=== PATIENT | female | born 1955 | race Caucasian/White ===

== ENCOUNTER 2018-06-10 10:17 | Inpatient (IN) | payer OTHER ==
--- OUTSIDE RECORDS SUMMARY | 2018-06-10 10:18 | XMS REPORT ---
:1955 Author Organization eClinicalWorks Care Team Providers Name Role Phone Cecily Kwon Provider Role Unavailable Allergies No Known Allergies Problems Problem Type Condition Code Onset Dates Condition Status Problem Atrial fibrillation, unspecified I48.91 Active type Problem Heart disease I51.9 Active Problem Chronic obstructive pulmonary J44.9 Active disease, unspecified COPD type Problem Asthma, unspecified asthma J45.909 Active severity, unspecified whether complicated, unspecified whether persistent Problem Abnormal heart rhythm I49.9 Active Problem Anxiety F41.9 Active Problem Asthma J45.909 Active Problem COPD (chronic obstructive pulmonary J44.9 Active disease) Problem History of TIA (transient ischemic Z86.73 Active attack) Problem Depression with anxiety F41.8 Active Problem Stroke I63.9 Active Problem Depression F32.9 Active Medications No Known Medications Results No Known Results Summary Purpose eClinicalWorks Submission
--- OUTSIDE RECORDS SUMMARY | 2018-06-10 10:18 | XMS REPORT ---
:1955 Author Organization eClinicalWorks Care Team Providers Name Role Phone Cecily Kwon Provider Role Unavailable Allergies, Adverse Reactions, Alerts Substance Reaction Event Type Bactrim Info Not Available Drug Allergy contrast dye hives Non Drug Allergy Problems Problem Type Condition Code Onset Dates Condition Status Problem Atrial fibrillation, unspecified I48.91 Active type Problem Heart disease I51.9 Active Problem Chronic obstructive pulmonary J44.9 Active disease, unspecified COPD type Problem Anxiety F41.9 Active Problem Asthma J45.909 Active Problem COPD (chronic obstructive pulmonary J44.9 Active disease) Problem History of TIA (transient ischemic Z86.73 Active attack) Problem Depression with anxiety F41.8 Active Problem Stroke I63.9 Active Problem Depression F32.9 Active Assessment Depression with anxiety F41.8 Active Assessment History of TIA (transient ischemic Z86.73 Active attack) Assessment Atrial fibrillation, unspecified I48.91 Active type Assessment Chronic obstructive pulmonary J44.9 Active disease, unspecified COPD type Problem Asthma, unspecified asthma J45.909 Active severity, unspecified whether complicated, unspecified whether persistent Assessment Asthma, unspecified asthma J45.909 Active severity, unspecified whether complicated, unspecified whether persistent Problem Abnormal heart rhythm I49.9 Active Medications Medication Code Code Instructions Start End Status Dosage System Date Date Symbicort [facility] 25461149967 160-4.5 MCG/ACT September 17, Active 2 puffs Inhalation 2019 Twice daily Albuterol [facility] 43313968716 (2.5 MG/3ML) Active 3 ml unit Sulfate 0.083% dose as Inhalation needed Every 4-[address] [facility] 71752023679 50 MG Orally Active 1 tablet Tartrate Twice daily with food Eliquis ND 91995420823 5 MG Orally Active 1 tablet Twice daily Sertraline HCl ND 61856044273 50 MG Orally Active 1 tablet Once daily Atorvastatin ND 37320417990 40 MG Orally Active 1 tablet Calcium Once daily in evening Ventolin HFA ND 98102490631 90 MCG/ACT Active 2 puffs as Inhalation needed every 4-[address] [facility] 15822136789 100 mg Orally Active 1 tablet Acetate Twice daily Results No Known Results Summary Purpose eClinicalWorks Submission
[2018-06-10] MEDS ORDERED: IPRATROPIUM BROM 0.5MG/2.5ML ONE (10:43)
[2018-06-10] MEDS ORDERED: ALBUTEROL 2.5 MG/3 ML NEB SOL ONE (10:43)
[2018-06-10] MEDS ORDERED: METHYLPREDNISOLONE 125 MG INJ ONE (10:53)
[2018-06-10] MEDS ORDERED: Magnesium Sulfate 2gm IVPB 2 G/50 ML BAG IV ONE (10:53)
[2018-06-10 11:11] LABS: Absolute Lymphocytes (CBC) 0.7 K/uL (0.7-4.9); Absolute Monocytes 0.6 K/uL (0.1-1.3); Absolute Neutrophil 5.9 K/uL (1.8-8.0); Basophils % 0.9 % (0-1.3); Eosinophils % 0.5 % (0-4.4); Hematocrit 46.5 % (36.0-45.0); Lymphocytes % 10.1 % (15.3-44.8); Monocytes % 7.6 % (3.3-12.3); RBC Red Blood Cell Count 5.43 M/uL (3.86-4.86)
--- NOTE | 2018-06-10 11:11 | RAD REPORT ---
EXAM DESCRIPTION: RAD - Chest Single View - 06/10/2018 11:05 am CLINICAL HISTORY: Cough, shortness of breath, history of COPD COMPARISON: None. TECHNIQUE: AP portable chest image was obtained 1103 hours . FINDINGS: No focal lung parenchymal process. Portable technique and overlying breast soft tissue acc entuates lung base markings. Minimal interstitial edema or infiltrate is not excluded. Heart and vasc ulature are normal. No measurable pleural effusion and no pneumothorax. No acute bony abnormality see n. No acute aortic findings suspected. IMPRESSION: No focal lung parenchymal process and no significant failure or volume overload findings . Baseline study shows prominent interstitial markings and early interstitial edema or infiltrate canno t be excluded.
[2018-06-10] MEDS ORDERED: LEVALBUTEROL 1.25 MG/3 ML NEB ONE (11:16)
[2018-06-10 11:37] LABS: Troponin (Emerg Dept Use Only) < 0.02 ng/mL (0.0-0.045)
[2018-06-10 11:38] LABS: BUN Blood Urea Nitrogen 22 mg/dL (7-18); Bicarbonate 26 mmol/L (21-32); Glucose Level 160 mg/dL (74-106); Potassium 3.9 mmol/L (3.5-5.1); Sodium Level 139 mmol/L (136-145)
--- NOTE | 2018-06-10 11:48 | ER ---
Nurse's Notes [facility] Name: Nayely Patiño Age: 62 yrs Sex: Female : 1955 Arrival Date: 06/10/2018 Time: 10:17 Bed 7 Private MD: Cecily Kwon Diagnosis: Chronic obstructive pulmonary disease with (acute) exacerbation Presentation: 06/10 10:28 Presenting complaint: Patient states: dx with strep on Monday and sent home with sv Amoxicillin, has been having increasing SOB since and has been doubling up on her inhaler at home. Pt slept sitting up last night. Transition of care: patient was not received from another setting of care. Onset of symptoms was June 08, 2018. Risk Assessment: Do you want to hurt yourself or someone else? Patient reports no desire to harm self or others. Initial Sepsis Screen: Does the patient meet any 2 criteria? RR > 20 per min. No. Patient's initial sepsis screen is negative. Does the patient have a suspected source of infection? Yes: Productive cough/pneumonia. Care prior to arrival: None. 10:28 Method Of Arrival: Wheelchair sv 10:28 Acuity: ALEXI 2 sv Triage Assessment: 10:28 General: Appears distressed, uncomfortable, well developed, Behavior is cooperative, sv appropriate for age. Pain: Denies pain. Neuro: Level of Consciousness is awake, alert, obeys commands, Oriented to person, place, time, situation, Moves all extremities. Full function Gait is steady, Speech is normal. Cardiovascular: Patient's skin is warm and dry. Pulses are 3+ in right radial artery and left radial artery. Respiratory: Reports shortness of breath at rest on exertion cough that is productive, persistent yellow labored breathing Airway is patent Respiratory effort is labored, pursed lip, Respiratory pattern is symmetrical, tachypnea Breath sounds with wheezes bilaterally. Onset: The symptoms/episode began/occurred 2 days ago, the patient has severe shortness of breath. Derm: Skin is pink, warm \T\ dry. Historical: - Allergies: 10:39 Bactrim; sv 10:39 Iodine; sv - PMHx: 10:39 COPD; Atrial Fib; sv - PSHx: 10:39 back; Knee surgery; thumb; sv - Immunization history:: Adult Immunizations up to date. - Social history:: Smoking status: Patient uses tobacco products, smokes one-half pack cigarettes per day. - Ebola Screening: : No symptoms or risks identified at this time. Screenin:18 Abuse screen: Denies threats or abuse. Denies injuries from another. Nutritional sv screening: No deficits noted. Tuberculosis screening: No symptoms or risk factors identified. Fall Risk None identified. Assessment: 11:30 Reassessment: Patient appears in no apparent distress at this time. Patient and/or sv family updated on plan of care and expected duration. Pain level reassessed. Patient is alert, oriented x 3, equal unlabored respirations, skin warm/dry/pink. Patient states feeling better. Patient states symptoms have improved. Respiratory: Reports decreased SOB Airway is patent Respiratory effort is even, unlabored, Respiratory pattern is symmetrical, tachypnea Breath sounds with wheezes bilaterally. 12:25 Reassessment: Patient appears in no apparent distress at this time. Patient and/or sv family updated on plan of care and expected duration. Pain level reassessed. Patient is alert, oriented x 3, equal unlabored respirations, skin warm/dry/pink. Pt placed on a recliner for comfort, stated that she has had back surgery in the past and was uncomfortable in the bed. 13:05 Reassessment: Nurse unable to take report at this time. sv Vital Signs: 10:28 BP 146 / 86; Pulse 98; Resp 32; Temp 98.4; Pulse Ox 87% on R/A; Weight 93.89 kg; Height sv 5 ft. 3 in. (160.02 cm); Pain 6/10; 11:00 BP 123 / 89; Pulse 96; Resp 30; Pulse Ox 90% on 3 lpm NC; sv 12:00 BP 115 / 69; Pulse 91; Resp 28; Pulse Ox 97% on 50% BiPAP; sv 12:45 BP 104 / 54; Pulse 81; Resp 26; Pulse Ox 98% on 50% BiPAP; sv 10:28 Body Mass Index 36.67 (93.89 kg, 160.02 cm) sv 10:28 Pt placed on O2 \T\ 2L per NC. O2 sat up to 90%. sv ED Course: 10:17 Patient arrived in ED. as 10:18 Cecily Kwon MD is Private Physician. as 10:19 [facility]al[facility]C [facility] kb 10:19 Marlo Valdez MD is Attending Physician. kb 10:30 Arm band placed on Patient placed in an exam room, on a stretcher, on oxygen, on pulse sv oximetry. 10:37 Mable Pierre RN is Primary Nurse. sv 10:45 Initial lab(s) drawn, by me, sent to lab. First set of blood cultures drawn by me. sv Inserted saline lock: 20 gauge in right forearm, using aseptic technique. Blood collected. Flushed right forearm with 5 ml normal saline. 11:00 Second set of blood cultures drawn by me. sv 11:05 Chest Single View XRAY In Process Unspecified. EDMS 11:12 BIPAP Sent. sv 11:14 Triage completed. sv 11:18 Patient has correct armband on for positive identification. sv 11:47 Rosalee Mendieta MD is Hospitalizing Provider. kb 13:07 No provider procedures requiring assistance completed. Patient admitted, IV remains in sv place. intact. Administered Medications: 10:37 Drug: DuoNeb (3:1) (2.5 mg - 0.5 mg) 3 ml Route: Nebulizer; sv 11:12 Follow up: Response: No adverse reaction sv 10:57 Drug: SOLU-Medrol 125 mg Route: IVP; Site: right forearm; sv 11:12 Follow up: Response: No adverse reaction; No change in condition sv 11:00 Drug: Magnesium Sulfate 2 grams Route: IVPB; Infused Over: 2 hrs; Site: right forearm; sv 12:03 Follow up: Response: No adverse reaction; IV Status: Completed infusion; IV Intake: 50mlsv 11:12 Drug: Xopenex (3) 1.25 mg Route: Inhalation; sv 12:25 Drug: NS 0.9% 1000 ml Route: IV; Rate: 1000 ml; Site: right forearm; sv 13:20 Follow up: Response: No adverse reaction; IV Status: Infusion continued upon admission sv Intake: 12:03 IV: 50ml; Total: 50ml. sv Outcome: 11:47 Decision to Hospitalize by Provider. kb 13:20 Admitted to Tele accompanied by tech, family with patient, via wheelchair, room 421, sv with oxygen, with chart, Report called to Ana WARD 13:20 Condition: stable 13:20 Instructed on the need for admit. 13:55 Patient left the ED. sv Signatures: Dispatcher [employer] Clary Bello, HEATING ELEMENT WINDER-C HEATING ELEMENT WINDER-Mable Schultz, RN RN Faith Jones as
--- NOTE | 2018-06-10 11:48 | EDPHYS ---
Physician Documentation [facility] Name: Nayely Patiño Age: 62 yrs Sex: Female : 1955 Arrival Date: 06/10/2018 Time: 10:17 Bed 7 Private MD: Cecily Kwon ED Physician Marlo Valdez HPI: 06/10 10:48 This 62 yrs old Female presents to ER via Unassigned with complaints of kb Shortness Of Breath. 10:48 The patient has shortness of breath at rest, and the patient has a history of COPD. kb Onset: The symptoms/episode began/occurred 3 day(s) ago. Duration: The symptoms are continuous. The patient's shortness of breath is aggravated by exertion, is alleviated by nothing. Associated signs and symptoms: Pertinent positives: productive cough, fever, Pertinent negatives: chest pain, non-productive cough, diaphoresis, dizziness, hemoptysis, loss of consciousness, nausea, numbness in extremities, visual changes, vomiting. Severity of symptoms: At their worst the symptoms were moderate in the emergency department the symptoms are unchanged. The patient has experienced similar episodes in the past, chronically. The patient has been recently seen by a physician: the patient's primary care provider, 2 day(s) ago, with different complaint(s), and apparently was diagnosed with strep, was given a prescription for antibiotics. 10:49 Pt reports shortness of breath that started a few days ago. Pt has history of COPD, kb smokes 1/2 ppd. States she was diagnosed with strep on Monday and started Augmentin. Has neb treatments at home that she has been using every 4 hours without relief. Historical: - Allergies: 10:39 Bactrim; sv 10:39 Iodine; sv - PMHx: 10:39 COPD; Atrial Fib; sv - PSHx: 10:39 back; Knee surgery; thumb; sv - Immunization history:: Adult Immunizations up to date. - Social history:: Smoking status: Patient uses tobacco products, smokes one-half pack cigarettes per day. - Ebola Screening: : No symptoms or risks identified at this time. ROS: 10:47 Constitutional: Negative for fever, chills, and weight loss, ENT: Negative for injury, kb pain, and discharge, Neck: Negative for injury, pain, and swelling, Cardiovascular: Negative for chest pain, palpitations, and edema, Abdomen/GI: Negative for abdominal pain, nausea, vomiting, diarrhea, and constipation, Back: Negative for injury and pain, : Negative for injury, bleeding, discharge, and swelling, MS/Extremity: Negative for injury and deformity, Skin: Negative for injury, rash, and discoloration, Neuro: Negative for headache, weakness, numbness, tingling, and seizure. 10:47 Respiratory: Positive for cough, "sounds productive", dyspnea on exertion, shortness of breath, wheezing, Negative for hemoptysis, orthopnea, pleurisy. Exam: 10:47 Constitutional: This is a well developed, well nourished patient who is awake, alert, kb and in no acute distress. Head/Face: Normocephalic, atraumatic. ENT: Nares patent. No nasal discharge, no septal abnormalities noted. Tympanic membranes are normal and external auditory canals are clear. Oropharynx with no redness, swelling, or masses, exudates, or evidence of obstruction, uvula midline. Mucous membranes moist. Neck: Trachea midline, no thyromegaly or masses palpated, and no cervical lymphadenopathy. Supple, full range of motion without nuchal rigidity, or vertebral point tenderness. No Meningismus. Chest/axilla: Normal chest wall appearance and motion. Nontender with no deformity. No lesions are appreciated. Cardiovascular: Regular rate and rhythm with a normal S1 and S2. No gallops, murmurs, or rubs. Normal PMI, no JVD. No pulse deficits. Abdomen/GI: Soft, non-tender, with normal bowel sounds. No distension or tympany. No guarding or rebound. No evidence of tenderness throughout. Skin: Warm, dry with normal turgor. Normal color with no rashes, no lesions, and no evidence of cellulitis. MS/ Extremity: Pulses equal, no cyanosis. Neurovascular intact. Full, normal range of motion. Neuro: Awake and alert, GCS 15, oriented to person, place, time, and situation. Cranial nerves II-XII grossly intact. Motor strength 5/5 in all extremities. Sensory grossly intact. Cerebellar exam normal. Normal gait. 10:47 Respiratory: mild respiratory distress is noted, moderate respiratory distress is noted, Respirations: labored breathing, that is mild, Breath sounds: rhonchi, that are moderate, are heard diffusely. Vital Signs: 10:28 BP 146 / 86; Pulse 98; Resp 32; Temp 98.4; Pulse Ox 87% on R/A; Weight 93.89 kg; Height sv 5 ft. 3 in. (160.02 cm); Pain 6/10; 11:00 BP 123 / 89; Pulse 96; Resp 30; Pulse Ox 90% on 3 lpm NC; sv 12:00 BP 115 / 69; Pulse 91; Resp 28; Pulse Ox 97% on 50% BiPAP; sv 12:45 BP 104 / 54; Pulse 81; Resp 26; Pulse Ox 98% on 50% BiPAP; sv 10:28 Body Mass Index 36.67 (93.89 kg, 160.02 cm) sv 10:28 Pt placed on O2 \\T\\ 2L per NC. O2 sat up to 90%. sv MDM: 10:19 Patient medically screened. kb 10:47 Data reviewed: vital signs, nurses notes. Data interpreted: Pulse oximetry: on room air kb is 87 %. Interpretation: hypoxia. 11:42 Counseling: I had a detailed discussion with the patient and/or guardian regarding: the kb historical points, exam findings, and any diagnostic results supporting the discharge/admit diagnosis, lab results, radiology results, the need for further work-up and treatment in the hospital. 11:46 Physician consultation: Rosalee Mendieta MD was contacted at 11:47, regarding admission, to the medical/surgical unit. patient's condition, and will see patient in ED, shortly. 11:47 ED course: O2 sat 97% on bipap. Pt in no distress at this time. . kb 06/10 10:34 Order name: CBC with Diff; Complete Time: 11:19 kb 06/10 10:34 Order name: Basic Metabolic Panel; Complete Time: 11:42 kb 06/10 10:34 Order name: Blood Culture Adult (2) kb 06/10 10:34 Order name: Procalcitonin; Complete Time: 12:09 kb 06/10 10:34 Order name: Lactate; Complete Time: 11:42 kb 06/10 10:34 Order name: Troponin (emerg Dept Use Only); Complete Time: 11:42 kb 06/10 10:34 Order name: Chest Single View XRAY; Complete Time: 11:13 kb 06/10 10:34 Order name: Flu; Complete Time: 11:42 kb 06/10 11:06 Order name: BIPAP kb 06/10 10:34 Order name: EKG; Complete Time: 10:36 kb 06/10 10:34 Order name: EKG - Nurse/Tech; Complete Time: 11:00 kb 06/10 10:34 Order name: IV Start; Complete Time: 11:00 kb Administered Medications: 10:37 Drug: DuoNeb (3:1) (2.5 mg - 0.5 mg) 3 ml Route: Nebulizer; sv 11:12 Follow up: Response: No adverse reaction sv 10:57 Drug: SOLU-Medrol 125 mg Route: IVP; Site: right forearm; sv 11:12 Follow up: Response: No adverse reaction; No change in condition sv 11:00 Drug: Magnesium Sulfate 2 grams Route: IVPB; Infused Over: 2 hrs; Site: right forearm; sv 12:03 Follow up: Response: No adverse reaction; IV Status: Completed infusion; IV Intake: 50mlsv 11:12 Drug: Xopenex (3) 1.25 mg Route: Inhalation; sv 12:25 Drug: NS 0.9% 1000 ml Route: IV; Rate: 1000 ml; Site: right forearm; sv 13:20 Follow up: Response: No adverse reaction; IV Status: Infusion continued upon admission sv Disposition: 18:35 Co-signature as Attending Physician, Marlo Valdez MD. rn Disposition: 06/10/18 11:47 Hospitalization ordered by Rosalee Mendieta for Observation. Preliminary diagnosis is Chronic obstructive pulmonary disease with (acute) exacerbation. - Bed requested for Telemetry/MedSurg (observation). - Status is Observation. sv - Condition is Fair. - Problem is an acute exacerbation. - Symptoms have improved. UTI on Admission? No Signatures: Dispatcher [employer] EDClary Arthur, ROLY-C LANDING SIGNAL OFFICER-Mable Schultz RN Marlo Hernandez MD MD rn Martinez, Eric em1 Corrections: (The following items were deleted from the chart) 12:26 11:47 Hospitalization Ordered by Rosalee Mendieta MD for Observation. Preliminary diagnosis em1 is Chronic obstructive pulmonary disease with (acute) exacerbation. Bed requested for Telemetry/MedSurg (observation). Status is Observation. Condition is Fair. Problem is an acute exacerbation. Symptoms have improved. UTI on Admission? No. kb 13:55 12:26 06/10/2018 11:47 Hospitalization Ordered by Rosalee Mendieta MD for Observation. sv Preliminary diagnosis is Chronic obstructive pulmonary disease with (acute) exacerbation. Bed requested for Telemetry/MedSurg (observation). Status is Observation. Condition is Fair. Problem is an acute exacerbation. Symptoms have improved. UTI on Admission? No. em1
[2018-06-10] MEDS ORDERED: NA CHLORIDE 0.9% 1,000 ML ONE (12:15)
[2018-06-10] MEDS ORDERED: ONDANSETRON 4 MG/2 ML VIAL IV PRN (14:47)
[2018-06-10] MEDS ORDERED: ACETAMINOPHEN 500 MG TAB PO PRN (14:47)
[2018-06-10] MEDS: ALBUTEROL 2.5 MG/3 ML NEB SOL NEB SCH ×2 (15:49→20:00)
[2018-06-10] MEDS: IPRATROPIUM BROM 0.5MG/2.5ML NEB SCH ×2 (15:49→20:00)
[2018-06-10] MEDS: NA CHLORIDE 0.9% 1,000 ML IV SCH (17:39)
[2018-06-10] MEDS: METHYLPREDNISOLONE 40 MG INJ IV SCH (17:40)
[2018-06-10] MEDS: HOME MED 1 EA UNK (Budesonide/Formoterol Fumarate [Symbicort 160-4.5 Mcg Inhaler] 2 PUFF) IH SCH (21:00)
[2018-06-10] MEDS: ATORVASTATIN 40 MG TAB PO SCH (21:02)
[2018-06-10] MEDS: FLECAINIDE 100 MG TAB PO SCH (21:02)
[2018-06-10] MEDS: METOPROLOL TAR 50 MG TAB PO SCH (21:03)
[2018-06-10] MEDS: APIXABAN 5 MG TABLET PO SCH (21:03)
--- NOTE | 2018-06-10 21:51 | EKG ---
Test Date: 2018-06-10 Test Time: 10:51:06 Contract Admin: MEASUREMENT RESULTS: Intervals: Rate: 92 CO: 138 QRSD: 78 QT: 372 QTc: 460 [place]: P: 75 CO: 138 QRS: 95 T: 77 INTERPRETIVE STATEMENTS: Sinus rhythm with occasional premature ventricular complexes Rightward axis Nonspecific ST abnormality Abnormal ECG No previous ECG available for comparison Electronically Signed On 06-10-18 21:50:15 MEDICAL PRACTICE ADMINISTRATOR by Jose Salmeron
[2018-06-11] MEDS: METHYLPREDNISOLONE 40 MG INJ IV SCH ×4 (01:07→17:24)
[2018-06-11] MEDS: NA CHLORIDE 0.9% 1,000 ML IV SCH ×4 (02:00→16:07)
--- NOTE | 2018-06-11 03:51 | HP ---
Date of Admission: 06/10/2018 Chief Complaint: Shortness of breath. History Of Present Illness: The patient is a 62-year-old female with a past medical history of atria l fibrillation, on Eliquis; COPD, on nebulizers at home; and major depressive disorder, comes in with worsening shortness of breath and cough with sputum production. The patient does report using her n ebulizer treatments every 2 hours without any significant effect. The patient's symptoms are constan t, moderate, and progressively worsening. Upon arrival to the ER, her vital signs showed O2 saturati ons of 87%. She was breathing at 32 times per minute. She was afebrile. The patient was started on BiPAP and improved to 97%. Her workup revealed negative chest x-ray and influenza screen. White bl ood cell count was normal. The patient was then referred for admission. When seen in the ER, she wa s awake, alert, and oriented x3, in some mild respiratory distress. Past Medical History: COPD; atrial fibrillation, on Eliquis; major depressive disorder. Past Surgical History: The patient has had back surgery, cardioversions and ablations, and knee surg armida as well as thumb surgery. Allergies: TO BACTRIM AND IODINE, IV CONTRAST. Medications: List reviewed. Social History: The patient smokes half pack of cigarettes per day. Denies any daily alcohol use or illicit drug use. The patient is independent in her activities of daily living. Family History: The patient denies any history of heart disease or diabetes in the family. No histo ry of premature coronary artery disease. Review of Systems: An 11-point systems reviewed, negative except as per HPI. Physical Examination: Vital Signs: Temperature 98.4, heart rate 98, blood pressure 146/86, respirations 32, O2 87% on room air, improved to 97% on BiPAP. General: Awake, alert, oriented x3. Obese female, ill-appearing, in moderate respiratory distress. HEENT: Normocephalic, atraumatic. PERRLA. EOMI. Dry mucous membranes. Oropharynx is clear. Conj unctiva is anicteric. Neck: Supple. No JVD. Trachea midline. CV: S1 and S2. Regular rate and rhythm. Peripheral pulses present. Respiratory: Diminished breath sounds. Diffuse wheezing heard. No stridor. The patient is tachypn eic. Use of accessory muscles is present. Gastrointestinal: Abdomen is soft, nontender, and nondistended. Positive bowel sounds. No guarding or rigidity. Positive bowel sounds. Extremities: No clubbing, cyanosis, or edema. No calf tenderness. Neuro: Cranial nerves 2 through 12 intact grossly. No focal neurological deficit. Speech is normal . Skin: No rashes. Normal skin turgor. Psych: Mood is okay. Affect is full. Insight and judgment are good. Laboratory Data: WBC 7.3, H and H 15.3 and 46.5, platelets 206, neutrophils 80%. Sodium 139, potass ium 3.9, chloride 104, CO2 of 26, BUN 22, creatinine 1.12, glucose 160, lactate 1.6, calcium 9.8. Tr oponin less than 0.02. Procalcitonin 0.23. Blood cultures pending. Influenza screen is negative. Chest x-ray, personally reviewed, shows no focal lung parenchymal process and no significant failure or volume overload findings. Baseline study shows prominent interstitial markings and early intersti tial edema or infiltrate cannot be excluded. Assessment And Plan: A 62-year-old female with; 1.Acute respiratory failure with hypoxia, currently on BiPAP. We will try to wean as tolerated seco ndary to chronic obstructive pulmonary disease. 2.Acute chronic obstructive pulmonary disease exacerbation. Chest x-ray does show some increased ma rkings, however, no acute infiltrate. White count is normal. Procalcitonin is equivalent. We will monitor for signs of developing infection or sepsis. 3.Atrial fibrillation, paroxysmal, currently in sinus rhythm. We will continue monitoring on teleme try. We will resume apixaban and flecainide. 4.Major depressive disorder, single episode. Continue SSRI. 5.Obesity, BMI 35.6. 6.Nicotine dependence with cigarette smoking, continuous, counseled. 7.Secondary polycythemia, likely due to smoking. 8.Mixed hyperlipidemia. We will continue statin. PLAN: Admit the patient to Med-Surg, place as inpatient. Length of stay, greater than 2 midnights. ANATOLY Voice ID: [id number]
[2018-06-11 05:14] LABS: Absolute Lymphocytes (CBC) 0.9 K/uL (0.7-4.9); Absolute Monocytes 0.3 K/uL (0.1-1.3); Absolute Neutrophil 4.7 K/uL (1.8-8.0); Basophils % 0.3 % (0-1.3); Eosinophils % 0.1 % (0-4.4); Hematocrit 40.7 % (36.0-45.0); Lymphocytes % 15.2 % (15.3-44.8); MPV 9.5 fL (7.6-11.3); Monocytes % 4.6 % (3.3-12.3); RBC Red Blood Cell Count 4.75 M/uL (3.86-4.86)
[2018-06-11 05:21] LABS: Magnesium 2.1 mg/dL (1.8-2.4); Potassium 4.7 mmol/L (3.5-5.1)
[2018-06-11] MEDS: ALBUTEROL 2.5 MG/3 ML NEB SOL NEB SCH ×4 (08:39→15:28)
[2018-06-11] MEDS: IPRATROPIUM BROM 0.5MG/2.5ML NEB SCH ×5 (08:40→20:00)
[2018-06-11] MEDS: APIXABAN 5 MG TABLET PO SCH ×2 (08:58→20:24)
[2018-06-11] MEDS: METOPROLOL TAR 50 MG TAB PO SCH ×2 (08:58→20:24)
[2018-06-11] MEDS: SERTRALINE HCL 50 MG TAB PO SCH (08:58)
[2018-06-11] MEDS: FLECAINIDE 100 MG TAB PO SCH ×2 (08:59→20:24)
[2018-06-11] MEDS: HOME MED 1 EA UNK (Budesonide/Formoterol Fumarate [Symbicort 160-4.5 Mcg Inhaler] 2 PUFF) IH SCH ×2 (09:00→20:25)
[2018-06-11] MEDS: PHENOL 1.4% ORAL SPRAY 180ML MM PRN ×3 (12:16→20:23)
[2018-06-11 15:46] LABS: Urine Appearance CLEAR; Urine Bilirubin NEGATIVE (NEG); Urine Blood TRACE (NEG); Urine Color YELLOW; Urine Glucose NEGATIVE (NEG); Urine Protein 1+ (NEG); Urine Urobilinogen 0.2 mg/dL (0.2-1.0)
[2018-06-11 15:57] LABS: Urine Microscopic Reflex ORDER UMIC
[2018-06-11 16:20] LABS: Urine Bacteria 20-50 /HPF (<20); Urine Culture Reflex Order REFLEXED
[2018-06-11 16:21] LABS: Calcium Oxalate Crystals- Ur MODERATE (NONE SEEN); Urine Waxy Casts 0-5 /LPF (NONE SEEN); Urine Yeast FEW (NONE SEEN)
--- NOTE | 2018-06-11 16:50 | PN ---
Date of Progress Note: 06/11/2018 Subjective: The patient is seen and examined, chart reviewed, and case discussed with RN and Dr. Mesfin moreland. The patient continues to have significant shortness of breath and gets dyspneic on minimal ex ertion, for example, braiding her hair this morning. Overall, the patient states that she is better than yesterday. Medications: List reviewed. Objective: Vital Signs: Temperature 96.9, heart rate 67, blood pressure 119/60, respirations 18, an d O2 94% on 2 L via nasal cannula. General: Awake, alert, oriented x3. Obese female, ill appearing. CV: S1, S2. Regular rate and rhythm. Peripheral pulses present. RESPIRATORY: Diminished breath sounds. Expiratory wheezing present. The patient is tachypneic with use of accessory muscles. GASTROINTESTINAL: Abdomen is soft, nontender, nondistended. Positive bowel sounds. Extremities: No clubbing, cyanosis, or edema. Neurologic: Nonfocal. Cranial nerves 2 through 12 intact grossly. Laboratory Data: Sodium 141, potassium 4.7, chloride 110, CO2 24, BUN 23, creatinine 0.91, glucose 1 53, calcium 8.9, and magnesium 2.1. WBC 5.8, H and H 13.6, 40.7, platelets 179, and neutrophils 79.8 %. Blood cultures no growth to date. Assessment: A 62-year-old female with: 1.Acute chronic obstructive pulmonary disease exacerbation. We will continue on albuterol and iprat ropium nebulizers. Continue IV steroids. Wean off oxygen as tolerated. 2.Acute respiratory failure with hypoxia requiring BiPAP. We will consult Pulmonology secondary to above. 3.Atrial fibrillation, paroxysmal, currently in sinus rhythm. Continue apixaban and flecainide. 4.Major depressive disorder, single episode. Continue SSRI. 5.Obesity, body mass index 35.6. 6.Nicotine dependence. Dependence with cigarette smoking continuous. The patient has been counsele d. 7.Secondary polycythemia, likely due to cigarette smoking. 8.Mixed hyperlipidemia. Continue statin. 9.Gastrointestinal and deep venous thrombosis prophylaxis. The patient is already on apixaban. Plan: Continue current treatment. Start weaning off steroids. Pulmonology consultation. Likely di scharge in the next 24-48 hours depending on clinical response. SA/MODL Voice ID: [id number] Report ID: [id number]
--- NOTE | 2018-06-11 19:43 | P.CNS ---
Date of Consult: 06/11/18 Reason for Consult: COPD exacerbation Chief Complaint: Shortness of breath History of Present Illness: Patient is 62 years of age became sick developed a cord over the past day became increasing shortness of breath he has a history of COPD uses Ventolin at home and a nebulizer not on any oxygen patient was an [place] and was seen by a ip litigation associate ct technologist and a sleep doctor she also has sleep apnea compliant with her CPAP still continues to smoke a feeling a lot better Allergies Iodinated Contrast- Oral and IV Dye Allergy (Verified 06/10/18 14:38) Hives sulfamethoxazole [From Bactrim] Allergy (Verified 06/10/18 14:38) Hives trimethoprim [From Bactrim] Allergy (Verified 06/10/18 14:38) Hives Home Medications: Albuterol Inhaler [Ventolin Inhaler*] 2 puff IH Q6H PRN 06/10/18 Apixaban [Eliquis] 5 mg PO BID 06/10/18 Atorvastatin Calcium [Lipitor] 40 mg PO BEDTIME 06/10/18 Budesonide/Formoterol Fumarate [Symbicort 160-4.5 Mcg Inhaler] 2 puff IH BID 02/16 Flecainide [Tambocor*] 100 mg PO BID 06/10/18 Metoprolol Tartrate [Lopressor*] 50 mg PO BID 06/10/18 Sertraline HCl 50 mg PO DAILY 06/10/18 predniSONE [Prednisone*] 20 mg PO BID #10 tab 06/12/18 - Past Medical/Surgical History Diabetic: No -: CVA no residual 10/2016 -: A-fibb & flutter. -: COPD -: sleep apnea wears C-pap. -: dental issues -: Back surg- laminectomy, spinal fusions -: closure of hand cut on rt. -: authorscopy left knee 89 - Family History Mother Medical History: Heart disease, Hypertension Father Medical History: Heart disease, Lung disease, Diabetes - Social History Smoking Status: Current every day smoker Alcohol use: Yes CD- Drugs: No Caffeine use: Yes Place of Residence: Home Review of Systems 10-point ROS is otherwise unremarkable General: Weakness Respiratory: Shortness of Breath Physical Examination Temp Pulse Resp BP Pulse Ox 97.5 F 76 18 147/78 H 96 06/11/18 16:00 06/11/18 16:00 06/11/18 16:00 06/11/18 16:00 06/11/18 16:00 General: Alert, In no apparent distress, Oriented x3 HEENT: Atraumatic Neck: Supple Respiratory: Expiratory wheezes Cardiovascular: No edema, Regular rate/rhythm, Normal S1 S2 Gastrointestinal: Normal bowel sounds, Soft and benign Musculoskeletal: No clubbing, No swelling - Problems (1) COPD with acute exacerbation Onset Date: 06/11/18 Current Visit: Yes Status: Acute Plan: Patient is 62 years of age admitted with an acute exacerbation of underlying COPD she still continues to smoke history of sleep apnea compliant with medication chest x-rays clear no evidence of underlying infection patient is feeling a lot better medications dosages adjusted for to be discharged home tomorrow on bronchodilators which she has Symbicort and nebulizer at home low- dose prednisone antibiotics not indicated follow up with me in 2 weeks she does need supplies for a CPAP machine follow with me in 2 weeks Room iar pulse OX to determine if pt will qualify qualify for home oxygen patient will also need a low-dose CT scan counseled about stopping smoking
[2018-06-11] MEDS: AMOX/K CLAV 875 MG TAB PO SCH (20:24)
[2018-06-11] MEDS: ATORVASTATIN 40 MG TAB PO SCH (20:25)
[2018-06-11] MEDS: predniSONE 20 MG TAB PO SCH (20:49)
[2018-06-12] MEDS: IPRATROPIUM BROM 0.5MG/2.5ML NEB SCH ×4 (02:00→20:00)
[2018-06-12 04:12] LABS: Absolute Lymphocytes (CBC) 1.4 K/uL (0.7-4.9); Absolute Monocytes 0.5 K/uL (0.1-1.3); Absolute Neutrophil 11.2 K/uL (1.8-8.0); Basophils % 0.3 % (0-1.3); Hematocrit 42.2 % (36.0-45.0); Lymphocytes % 10.3 % (15.3-44.8); MPV 9.3 fL (7.6-11.3); Monocytes % 3.9 % (3.3-12.3); RBC Red Blood Cell Count 4.92 M/uL (3.86-4.86)
[2018-06-12 04:24] LABS: Potassium 4.7 mmol/L (3.5-5.1)
[2018-06-12 04:57] LABS: Blood Morphology Comment NOT SEEN (NOT SEEN); Platelet Estimate ADEQ
[2018-06-12] MEDS: Budesonide/Formoterol Fumarate (Symbicort) 160-4.5 Mcg Inhaler IH SCH ×2 (09:31→20:52)
[2018-06-12] MEDS: METOPROLOL TAR 50 MG TAB PO SCH ×2 (09:32→20:53)
[2018-06-12] MEDS: SERTRALINE HCL 50 MG TAB PO SCH (09:32)
[2018-06-12] MEDS: AMOX/K CLAV 875 MG TAB PO SCH ×2 (09:32→20:53)
[2018-06-12] MEDS: FLECAINIDE 100 MG TAB PO SCH ×2 (09:32→20:53)
[2018-06-12] MEDS: predniSONE 20 MG TAB PO SCH ×2 (09:32→20:53)
[2018-06-12] MEDS: APIXABAN 5 MG TABLET PO SCH ×2 (09:32→20:52)
[2018-06-12] MEDS: PHENOL 1.4% ORAL SPRAY 180ML MM PRN ×2 (09:34→17:43)
--- NOTE | 2018-06-12 15:20 | P.DS ---
Admission Date: 06/10/18 Discharge Date: 06/12/18 Disposition: ROUTINE DISCHARGE Discharge Condition: GOOD Reason for Admission: Shortness of breath Consultations: Dr Contreras - Patric (1) COPD with acute exacerbation Onset Date: 06/11/18 Current Visit: Yes Status: Acute Brief History of Present Illness: The patient is a 62-year-old female with a past medical history of atrial fibrillation, on Eliquis; COPD, on nebulizers at home; and major depressive disorder, comes in with worsening shortness of breath and cough with sputum production. The patient does report using her nebulizer treatments every 2 hours without any significant effect. The patient's symptoms are constant, moderate, and progressively worsening. Upon arrival to the ER, her vital signs showed O2 saturations of 87%. She was breathing at 32 times per minute. She was afebrile. The patient was started on BiPAP and improved to 97%. Her workup revealed negative chest x-ray and influenza screen. White blood cell count was normal. The patient was then referred for admission. When seen in the ER, she was awake, alert, and oriented x3, in some mild respiratory distress. Hospital Course: Over the course of the hospital stay patient remained stable Patient was initially admitted to the hospital for acute COPD exacerbation causing acute respiratory distress. Patient was kept on duo nebs, steroids, initially was started on antibiotics. Patient however had negative pro calcitonin x-ray was negative for pneumonia and thus was discontinued from antibiotics. Pulmonology was consulted who recommended that patient be continued on low-dose steroid and follow up with him outpatient in about 2 weeks for low density CT. Patient was educated extensively regarding smoking cessation as this was most likely the initial risk factor for his recent COPD exacerbation. Patient demonstrated understanding and stated that he would try to cut down his cigarette consumption. Patient was then discharged home under stable condition was asked to continue taking his inhalers as prescribed. Was asked to also follow up with pulmonology in about 1-2 days post discharge. Vital Signs/Physical Exam: Temp Pulse Resp BP Pulse Ox 97.6 F 65 26 H 147/65 H 96 06/12/18 12:00 06/12/18 12:00 06/12/18 12:00 06/12/18 12:00 06/12/18 12:00 General: Alert, In no apparent distress HEENT: Atraumatic, PERRLA, EOMI Neck: Supple, JVD not distended Respiratory: Clear to auscultation bilaterally, Normal air movement Cardiovascular: Regular rate/rhythm, Normal S1 S2 Gastrointestinal: Normal bowel sounds, No tenderness Musculoskeletal: No tenderness Integumentary: No rashes Neurological: Normal speech, Normal tone, Normal affect Lymphatics: No axilla or inguinal lymphadenopathy Laboratory Data at Discharge: WBC 13.1 K/uL (4.3-10.9) H D 06/12/18 03:35 Hgb 13.9 g/dL (12.0-15.0) 06/12/18 03:35 Hct 42.2 % (36.0-45.0) 06/12/18 03:35 Plt Count 211 K/uL (152-406) 06/12/18 03:35 Sodium 138 mmol/L (136-145) 06/12/18 03:35 Potassium 4.7 mmol/L (3.5-5.1) 06/12/18 03:35 BUN 30 mg/dL (7-18) H 06/12/18 03:35 Creatinine 0.90 mg/dL (0.55-1.3) 06/12/18 03:35 Glucose 125 mg/dL (74-106) H 06/12/18 03:35 Magnesium 2.1 mg/dL (1.8-2.4) 06/11/18 03:34 Home Medications: Albuterol Inhaler [Ventolin Inhaler*] 2 puff IH Q6H PRN 06/10/18 Apixaban [Eliquis] 5 mg PO BID 06/10/18 Atorvastatin Calcium [Lipitor] 40 mg PO BEDTIME 06/10/18 Budesonide/Formoterol Fumarate [Symbicort 160-4.5 Mcg Inhaler] 2 puff IH BID 02/16 Flecainide [Tambocor*] 100 mg PO BID 06/10/18 Metoprolol Tartrate [Lopressor*] 50 mg PO BID 06/10/18 Sertraline HCl 50 mg PO DAILY 06/10/18 predniSONE [Prednisone*] 20 mg PO BID #10 tab 06/12/18 New Medications: predniSONE [Prednisone*] 20 mg PO BID #10 tab Patient Discharge Instructions: Please f.u with PCP and Pulmonology in 2 weeks post discharge. Please Refrain from Smoking and you will need to get Low density CT for lung cancer screening. Diet: Regular Activity: Ad everardo Followup: Soto Perales MD [ACTIVE - CAN ADMIT] - 1-2 Weeks (Call to schedule an appointment) Cecily Kwon MD [Primary Care Provider] - 1-2 Weeks (Call to schedule an appointment)
[2018-06-12] MEDS: ALBUTEROL 2.5 MG/3 ML NEB SOL NEB PRN (20:02)
[2018-06-12] MEDS: ATORVASTATIN 40 MG TAB PO SCH (20:53)
[2018-06-13] MEDS: IPRATROPIUM BROM 0.5MG/2.5ML NEB SCH ×4 (02:00→20:52)
[2018-06-13] MEDS: APIXABAN 5 MG TABLET PO SCH ×2 (09:22→21:19)
[2018-06-13] MEDS: FLECAINIDE 100 MG TAB PO SCH ×2 (09:26→21:19)
[2018-06-13] MEDS: predniSONE 20 MG TAB PO SCH ×2 (09:26→21:19)
[2018-06-13] MEDS: Budesonide/Formoterol Fumarate (Symbicort) 160-4.5 Mcg Inhaler IH SCH ×2 (09:26→21:21)
[2018-06-13] MEDS: METOPROLOL TAR 50 MG TAB PO SCH ×2 (09:26→21:20)
[2018-06-13] MEDS: AMOX/K CLAV 875 MG TAB PO SCH ×2 (09:26→21:19)
[2018-06-13] MEDS: SERTRALINE HCL 50 MG TAB PO SCH (09:31)
--- NOTE | 2018-06-13 10:29 | P.PN ---
Subjective Date of Service: 06/13/18 Chief Complaint: COPD exacerbation Subjective: Improving (Doign much better. Pt will qualify for home O2. Needs CPAP supplies) Review of Systems Respiratory: Shortness of Breath Physical Examination - Vital Signs Temperature: 97.1 F Blood Pressure: 142/77 Pulse: 59 Respirations: 22 Pulse Ox (%): 97 - Physical Exam General: Alert, In no apparent distress, Oriented x3 Respiratory: Diminished, Expiratory wheezes Cardiovascular: No edema, Normal pulses Assessment & Plan - Problems (Diagnosis) (1) COPD with acute exacerbation Onset Date: 06/11/18 Current Visit: Yes Status: Acute Plan: PT admitted with COPD exacerbation and will qulaify for Home O2. Cw Symbicort and pred. (2) Sleep apnea Current Visit: Yes Status: Acute Plan: Mo dOSA. Needs CPAP supplies. Sleep study rev Qualifiers: Sleep apnea type: unspecified type Qualified Code(s): G47.30 - Sleep apnea , unspecified
[2018-06-13] MEDS: ALBUTEROL 2.5 MG/3 ML NEB SOL NEB PRN (14:38)
--- NOTE | 2018-06-13 17:20 | P.PN ---
Subjective Date of Service: 06/13/18 Chief Complaint: COPD exacerbation Subjective: Tolerating diet, Ambulating, Working w/ PT, Doing well Review of Systems 10-point ROS is otherwise unremarkable Physical Examination - Vital Signs Temperature: 97.1 F Blood Pressure: 130/62 Pulse: 63 Respirations: 20 Pulse Ox (%): 93 - Physical Exam General: Alert, In no apparent distress HEENT: Atraumatic, PERRLA, EOMI Neck: Supple, JVD not distended Respiratory: Clear to auscultation bilaterally, Normal air movement Cardiovascular: Regular rate/rhythm, Normal S1 S2 Gastrointestinal: Normal bowel sounds, No tenderness Musculoskeletal: No tenderness Integumentary: No rashes Neurological: Normal speech, Normal tone, Normal affect Lymphatics: No axilla or inguinal lymphadenopathy - Studies Medications List Reviewed: Yes Assessment And Plan - Current Problems (Diagnosis) (1) COPD with acute exacerbation Onset Date: 06/11/18 Current Visit: Yes Status: Acute Plan: Acute Phase Over now. Pt with Chronic Stable COPD requiring Oxygen -Will arrange for oxygen. -RA sats at < 88% - Plan Pending Oxygen Setup. Acute Phase Over now. Pt now with Chronic stable COPD Discharge Plan: Home Plan to discharge in: 48 Hours - Code Status/Comfort Care Code Status Assessed: Yes Critical Care: No
[2018-06-13] MEDS: ATORVASTATIN 40 MG TAB PO SCH (21:20)
[2018-06-14] MEDS: IPRATROPIUM BROM 0.5MG/2.5ML NEB SCH ×2 (01:09→08:56)
[2018-06-14] MEDS: FLECAINIDE 100 MG TAB PO SCH (10:50)
[2018-06-14] MEDS: predniSONE 20 MG TAB PO SCH (10:50)
[2018-06-14] MEDS: Budesonide/Formoterol Fumarate (Symbicort) 160-4.5 Mcg Inhaler IH SCH (10:50)
[2018-06-14] MEDS: AMOX/K CLAV 875 MG TAB PO SCH (10:50)
[2018-06-14] MEDS: METOPROLOL TAR 50 MG TAB PO SCH (10:50)
[2018-06-14] MEDS: SERTRALINE HCL 50 MG TAB PO SCH (10:50)
[2018-06-14] MEDS: APIXABAN 5 MG TABLET PO SCH (10:50)
--- NOTE | 2018-06-14 16:30 | P.PN ---
Subjective Date of Service: 06/14/18 Chief Complaint: COPD exacerbation The patient had her oxygen delivered today and thus was discharged home under stable condition Review of Systems 10-point ROS is otherwise unremarkable Physical Examination - Vital Signs Temperature: 97.3 F Blood Pressure: 131/71 Pulse: 62 Respirations: 24 Pulse Ox (%): 92 - Physical Exam General: Alert, In no apparent distress HEENT: Atraumatic, PERRLA, EOMI Neck: Supple, JVD not distended Respiratory: Clear to auscultation bilaterally, Normal air movement Cardiovascular: Regular rate/rhythm, Normal S1 S2 Gastrointestinal: Normal bowel sounds, No tenderness Musculoskeletal: No tenderness Integumentary: No rashes Neurological: Normal speech, Normal tone, Normal affect Lymphatics: No axilla or inguinal lymphadenopathy - Studies Medications List Reviewed: Yes Assessment And Plan - Current Problems (Diagnosis) (1) COPD with acute exacerbation Onset Date: 06/11/18 Status: Acute Plan: Acute Phase Over now. Pt with Chronic Stable COPD requiring Oxygen -oxygen was delivered today and thus was discharged home under stable condition -RA sats at < 88% - Plan Patient discharged home under stable condition as oxygen was delivered today. Initially patient's family was concerned with physical therapy working with the patient here. Patient however ambulated 250 feet without rolling walker with minimum assist around the nurse's station and did fine. Training as well. Patient thus was discharged home and home health was set up for her. Discharge Plan: Home Plan to discharge in: 48 Hours - Code Status/Comfort Care Code Status Assessed: Yes Critical Care: No
== END 2018-06-14 11:56 | disposition home health service (06) | DRG 190 ==
LOC: ER 10:17 → ERHOLD 11:59 → 4TH 13:23
PROVIDERS: ADMIT Family Medicine; ATTEND Family Medicine
PROC: 5A09457 Assistance with Respiratory Ventilation, 24-96 Consecutive Hours, Continuous Positive Airway Pressure (ICD-10-PCS; principal; 2018-06-10)
DX: J44.1 Chronic obstructive pulmonary disease with (acute) exacerbation (principal); J96.01 Acute respiratory failure with hypoxia; Z79.01 Long term (current) use of anticoagulants; F32.9 Major depressive disorder, single episode, unspecified; F17.210 Nicotine dependence, cigarettes, uncomplicated; I48.0 Paroxysmal atrial fibrillation; E66.9 Obesity, unspecified; Z68.35 Body mass index [BMI] 35.0-35.9, adult; D75.1 Secondary polycythemia; E78.2 Mixed hyperlipidemia; Z86.73 Personal history of transient ischemic attack (TIA), and cerebral infarction without residual deficits; G47.30 Sleep apnea, unspecified
CPT/HCPCS: 36415; 71045; 80048; 81003; 81015; 83605; 83735; 84145; 84484; 85025; 87040; 87070; 87077; 87086; 87088; 87186; 87205; 87804; 93005; 94640; 94660; 96361; 96365; 96375; 99285; J2920; J2930; J3475; J7030; J7512

== ENCOUNTER 2018-08-05 10:29 | Emergency (ER) | payer OTHER ==
--- OUTSIDE RECORDS SUMMARY | 2018-08-05 10:31 | XMS REPORT ---
[...] End Status Dosage System Date Date Symbicort [facility] 24349373563 160-4.5 MCG/ACT September 17, Active 2 puffs Inhalation 2019 Twice daily Albuterol [facility] 01577248756 (2.5 MG/3ML) Active 3 ml unit Sulfate 0.083% dose as Inhalation needed Every 4-6 hours Metoprolol [facility] 52458983981 50 MG Orally Active 1 tablet Tartrate Twice daily with food Eliquis ND 60870400812 5 MG Orally Active 1 tablet Twice daily Sertraline HCl ND 26475244637 50 MG Orally Active 1 tablet Once daily Atorvastatin ND 53598566461 40 MG Orally Active 1 tablet Calcium Once daily in evening Ventolin HFA ND 81461525917 90 MCG/ACT Active 2 puffs as Inhalation needed every 4-6 hrs Flecainide [facility] 62171528502 100 mg Orally Active 1 tablet Acetate Twice daily Results No Known Results Summary Purpose eClinicalWorks Submission
--- OUTSIDE RECORDS SUMMARY | 2018-08-05 10:31 | XMS REPORT ---
:1955 Author Organization eClinicalWorks Care Team Providers Name Role Phone MelecioCecily hinojosa Provider Role Unavailable Allergies, Adverse Reactions, Alerts Substance Reaction Event Type Bactrim Info Not Available Drug Allergy contrast dye hives Non Drug Allergy Problems Problem Type Condition Code Onset Dates Condition Status Assessment Depression with anxiety F41.8 Active Assessment History of TIA (transient ischemic Z86.73 Active attack) Assessment Uses continuous positive airway Z99.89 Active pressure (CPAP) ventilation at home Assessment Obstructive sleep apnea G47.33 Active Assessment Asthma, unspecified asthma J45.909 Active severity, unspecified whether complicated, unspecified whether persistent Problem Depression with anxiety F41.8 Active Assessment Atrial fibrillation, unspecified I48.91 Active type Problem Asthma, unspecified asthma J45.909 Active severity, unspecified whether complicated, unspecified whether persistent Assessment Skin lesions L98.9 Active Problem Abnormal heart rhythm I49.9 Active Problem Chronic obstructive pulmonary J44.9 Active disease, unspecified COPD type Problem Atrial fibrillation, unspecified I48.91 Active type Problem COPD exacerbation J44.1 Active Problem Skin lesions L98.9 Active Assessment URI, acute J06.9 Active Assessment Streptococcus exposure Z20.818 Active Problem URI, acute J06.9 Active Assessment Strep pharyngitis J02.0 Active Problem Uses continuous positive airway Z99.89 Active pressure (CPAP) ventilation at home Problem Heart disease I51.9 Active Problem Strep pharyngitis J02.0 Active Problem Obstructive sleep apnea G47.33 Active Problem Asthma J45.909 Active Problem Anxiety F41.9 Active Assessment COPD exacerbation J44.1 Active Problem Stroke I63.9 Active Problem History of TIA (transient ischemic Z86.73 Active attack) Problem COPD (chronic obstructive pulmonary J44.9 Active disease) Problem Depression F32.9 Active Medications Medication Code Code Instructions Start End Status Dosage System Date Date Ventolin HFA ND 80838842638 90 MCG/ACT Active 2 puffs as Inhalation needed every 4-6 hrs Atorvastatin ND 21040852388 40 MG Orally Active 1 tablet Calcium Once daily in evening Flecainide [facility] 40498907111 100 mg Orally Active 1 tablet Acetate Twice daily Augmentin [facility] 92169574636 875-125 MG Jun 08, Jun 18, Active 1 tablet Orally every 12 2018 2019 hrs Symbicort [facility] 93891480538 160-4.5 MCG/ACT September 17, Active 2 puffs Inhalation 2018 Twice daily Sertraline HCl [facility] 20042432548 50 MG Orally Active 1 tablet Once daily Metoprolol [facility] 63168163039 50 MG Orally Active 1 tablet Tartrate Twice daily with food Eliquis [facility] 17352024143 5 MG Orally Active 1 tablet Twice daily Albuterol [facility] 97324136117 (2.5 MG/3ML) Active 3 ml unit Sulfate 0.083% dose as Inhalation needed Every 4-6 hours Results Name Result Date Reference Range Unit Abnormality Flag FLU TEST ----A Negative [id number] ----B Negative [id number] STREP A RAPID ----Result Positive [id number] Summary Purpose eClinicalWorks Submission
--- OUTSIDE RECORDS SUMMARY | 2018-08-05 10:32 | XMS REPORT ---
:1955 Author Organization eClinicalWorks Care Team Providers Name Role Phone Doyle Cecily Provider Role Unavailable Allergies No Known Allergies Problems Problem Type Condition Code Onset Dates Condition Status Problem Heart disease I51.9 Active Problem Obstructive sleep apnea G47.33 Active Problem Uses continuous positive airway Z99.89 Active pressure (CPAP) ventilation at home Problem Hypoxia R09.02 Active Problem Depression with anxiety F41.8 Active Problem Oxygen dependent Z99.81 Active Problem COPD with exacerbation J44.1 Active Problem COPD exacerbation J44.1 Active Problem URI, acute J06.9 Active Problem Strep pharyngitis J02.0 Active Problem Skin lesions L98.9 Active Problem Anxiety F41.9 Active Problem COPD (chronic obstructive pulmonary J44.9 Active disease) Problem History of TIA (transient ischemic Z86.73 Active attack) Problem Asthma J45.909 Active Problem Asthma, unspecified asthma J45.909 Active severity, unspecified whether complicated, unspecified whether persistent Problem Abnormal heart rhythm I49.9 Active Problem Depression F32.9 Active Problem Atrial fibrillation, unspecified I48.91 Active type Problem Stroke I63.9 Active Problem Chronic obstructive pulmonary J44.9 Active disease, unspecified COPD type Medications No Known Medications Results No Known Results Summary Purpose [employer] Submission
--- OUTSIDE RECORDS SUMMARY | 2018-08-05 10:32 | XMS REPORT ---
:1955 Author Organization eClinicalWorks Care Team Providers Name Role Phone Cecily Kwon Provider Role Unavailable Allergies No Known Allergies Problems Problem Type Condition Code Onset Dates Condition Status Problem Abnormal heart rhythm I49.9 Active Problem Chronic obstructive pulmonary J44.9 Active disease, unspecified COPD type Problem Atrial fibrillation, unspecified I48.91 Active type Problem COPD exacerbation J44.1 Active Problem Skin lesions L98.9 Active Problem URI, acute J06.9 Active Problem Uses continuous positive airway Z99.89 Active pressure (CPAP) ventilation at home Problem Heart disease I51.9 Active Problem Strep pharyngitis J02.0 Active Problem Obstructive sleep apnea G47.33 Active Problem Asthma J45.909 Active Problem Anxiety F41.9 Active Problem Stroke I63.9 Active Problem History of TIA (transient ischemic Z86.73 Active attack) Problem COPD (chronic obstructive pulmonary J44.9 Active disease) Problem Depression with anxiety F41.8 Active Problem Depression F32.9 Active Problem Asthma, unspecified asthma J45.909 Active severity, unspecified whether complicated, unspecified whether persistent Medications No Known Medications Results No Known Results Summary Purpose [email or web address] Submission
--- OUTSIDE RECORDS SUMMARY | 2018-08-05 10:32 | XMS REPORT ---
[...] Medications Results No Known Results Summary Purpose [employer]Clinical[employer]ing Submission
--- OUTSIDE RECORDS SUMMARY | 2018-08-05 10:32 | XMS REPORT ---
:1955 Author Organization eClinicalWorks Care Team Providers Name Role Phone Cecily Kwon Provider Role Unavailable Allergies, Adverse Reactions, Alerts Substance Reaction Event Type Bactrim Info Not Available Drug Allergy contrast dye hives Non Drug Allergy Problems Problem Type Condition Code Onset Dates Condition Status Assessment Uses continuous positive airway Z99.89 Active pressure (CPAP) ventilation at home Assessment Obstructive sleep apnea G47.33 Active Assessment Strep pharyngitis J02.0 Active Assessment Follow-up exam Z09 Active Problem Atrial fibrillation, unspecified I48.91 Active type Assessment Oxygen dependent Z99.81 Active Problem Chronic obstructive pulmonary J44.9 Active disease, unspecified COPD type Assessment Hypoxia R09.02 Active Problem Heart disease I51.9 Active Problem Obstructive sleep apnea G47.33 Active Problem Uses continuous positive airway Z99.89 Active pressure (CPAP) ventilation at home Problem Hypoxia R09.02 Active Problem Oxygen dependent Z99.81 Active Problem Depression with anxiety F41.8 Active Problem COPD with exacerbation J44.1 Active Assessment COPD with exacerbation J44.1 Active Problem COPD [...] I49.9 Active Problem Depression F32.9 Active Problem Stroke I63.9 Active Medications Medication Code Code Instructions Start End Status Dosage System Date Date Albuterol [facility] 78456187157 (2.5 MG/3ML) Active 3 ml unit Sulfate 0.083% dose as Inhalation needed Every 4-6 hours Sertraline HCl ND 76283374853 50 MG Orally Active 1 tablet Once daily Flecainide ND 45550335072 100 mg Orally Active 1 tablet Acetate Twice daily Eliquis [facility] 99731676154 5 MG Orally Active 1 tablet Twice daily Ventolin HFA [facility] 23656369690 90 MCG/ACT Active 2 puffs as Inhalation needed every 4-6 hrs Atorvastatin [facility] 03071237553 40 MG Orally Active 1 tablet Calcium Once daily in evening Symbicort [facility] 38598384050 160-4.5 MCG/ACT September 17, Active 2 puffs Inhalation 2018 Twice daily Metoprolol [facility] 41097961962 50 MG Orally Active 1 tablet Tartrate Twice daily with food Results Name Result Date Reference Range Unit Abnormality Flag STREP A RAPID ----Result Negative [id number] Summary Purpose eClinicalWorks Submission
[2018-08-05 11:43] LABS: Absolute Lymphocytes (CBC) 1.6 K/uL (0.7-4.9); Absolute Monocytes 0.7 K/uL (0.1-1.3); Absolute Neutrophil 6.9 K/uL (1.8-8.0); Basophils % 0.5 % (0-1.3); Eosinophils % 1.4 % (0-4.4); Hematocrit 40.6 % (36.0-45.0); Lymphocytes % 16.8 % (15.3-44.8); MPV 8.7 fL (7.6-11.3); Monocytes % 7.3 % (3.3-12.3); RBC Red Blood Cell Count 4.66 M/uL (3.86-4.86)
[2018-08-05 12:19] LABS: Albumin 3.8 g/dL (3.4-5.0); Bilirubin Total 0.6 mg/dL (0.2-1.0); Potassium 4.4 mmol/L (3.5-5.1); Protein, Total 7.7 g/dL (6.4-8.2)
[2018-08-05] MEDS ORDERED: LIDOCAINE 1% MPF 5 ML VIAL ONE (12:44)
[2018-08-05] MEDS ORDERED: CLINDAMYCIN 900MG/D5W 900 MG/50 ML IVPB IV ONE (12:44)
[2018-08-05] MEDS ORDERED: BUPIVACAINE 0.5% PF 10 ML VIAL ONE (13:48)
--- NOTE | 2018-08-05 14:08 | EDPHYS ---
Physician Documentation [facility] Name: Nayely Patiño Age: 62 yrs Sex: Female : 1955 Arrival Date: 08/05/2018 Time: 10:30 Bed 6 Private MD: Cecily Kwon ED Physician Vaibhav Mendoza HPI: 08/05 10:42 This 62 yrs old Female presents to ER via Ambulatory with complaints of jmm Insect Bite. 10:42 The patient presents with an abscess of the abdomen. Onset: The symptoms/episode jmm began/occurred gradually, 1 day(s) ago. Possible cause(s): insect sting, spider bite. Associated signs and symptoms: Pertinent positives: erythema, swelling, Pertinent negatives: fever. This is a 62 year old female with a history of a.fib, COPD that presents to the ED with complaints of abdominal swelling beginning yesterday. Patient has developed increased redness and swelling today. Patient denies fever or chills. . Historical: - Allergies: 10:38 Bactrim; la1 10:38 Iodine; la1 - PMHx: 10:38 Atrial Fib; COPD; la1 - Immunization history:: Adult Immunizations up to date. - Social history:: Smoking status: Patient uses tobacco products, smokes one-half pack cigarettes per day. - Ebola Screening: : No symptoms or risks identified at this time. ROS: 10:42 Constitutional: Negative for fever, chills, and weight loss, Cardiovascular: Negative jmm for chest pain, palpitations, and edema, Respiratory: Negative for shortness of breath, cough, wheezing, and pleuritic chest pain, Abdomen/GI: Negative for abdominal pain, nausea, vomiting, diarrhea, and constipation. 10:42 Constitutional: Positive for 10:42 Skin: Positive for abscess. 10:42 All other systems are negative. Exam: 10:42 Head/Face: atraumatic. Eyes: EOMI, no conjunctival erythema appreciated ENT: Moist jmm Mucus Membranes Neck: Trachea midline, Supple Chest/axilla: Normal chest wall appearance and motion. Cardiovascular: Regular rate and rhythm. No edema appreciated Respiratory: Normal respirations, no respiratory distress appreciated 10:42 Constitutional: The patient appears in no acute distress, alert, awake. 10:42 Abdomen/GI: Inspection: swelling, induration noted to the mid abdomen. 10:42 Skin: swelling, erythema, and induration noted to the mid abdomen, fluctuant, TTP. 10:42 Neuro: Orientation: is normal, Mentation: is normal, Memory: is normal. 10:42 Psych: Behavior/mood is pleasant, cooperative. Vital Signs: 10:40 Pulse 58; Resp 18; Temp 97.7; Pulse Ox 98% on R/A; Weight 94.8 kg; Height 5 ft. 3 in. la1 (160.02 cm); Pain 7/10; 10:41 BP 117 / 69; la1 12:36 BP 118 / 71; Pulse 59; Resp 16; Pulse Ox 98% on R/A; Pain 7/10; iw 10:40 Body Mass Index 37.02 (94.80 kg, 160.02 cm) la1 Procedures: 14:04 I \T\ D: Incision and drainage was performed for an abscess of the abdomen Prepped with sabrina Albert . Anesthetized with 5 ml's 1% Lidocaine. Incised with #11 blade. Drained small amount purulent fluid. bloody fluid. Packed with sterile gauze, Dressing: sterile 4x4 gauze, the patient tolerated the procedure well. MDM: 10:42 Patient medically screened. [facility] 14:04 Data reviewed: vital signs, nurses notes. Counseling: I had a detailed discussion with sabrina the patient and/or guardian regarding: the historical points, exam findings, and any diagnostic results supporting the discharge/admit diagnosis, lab results, radiology results, the need for outpatient follow up, to return to the emergency department if symptoms worsen or persist or if there are any questions or concerns that arise at home. ED course: Labs unremarkable. Patient advised to follow up with general surgery for reevaluation. Patient was otherwise given strict return precautions. Patient understood and agrees with the plan of care. . 08/05 10:53 Order name: CBC with Diff; Complete Time: 11:53 [facility] 08/05 10:53 Order name: CMP; Complete Time: 12:20 [facility] 08/05 10:53 Order name: Procalcitonin; Complete Time: 12:39 [facility] 08/05 10:53 Order name: Lactate; Complete Time: 11:51 [facility] 08/05 10:53 Order name: US Extrmty Nonvasular Limited [facility] 08/05 10:53 Order name: Saline Lock; Complete Time: 11:27 [facility] 08/05 12:36 Order name: Incision \T\ Drainage Setup; Complete Time: 14:11 [facility] Administered Medications: 12:35 Drug: Clindamycin 900 mg Route: IVPB; Infused Over: 30 mins; Site: right antecubital; iw 13:05 Follow up: IV Status: Completed infusion iw 13:50 Drug: Lidocaine (1 %) 5 mg Route: Infiltration; iw Disposition: 08/06 08:21 Co-signature as Attending Physician, Vaibhav Mendoza MD I agree with the assessment and jaime plan of care. Disposition: 08/05/18 14:07 Discharged to Home. Impression: Cutaneous abscess of abdominal wall. - Condition is Stable. - Discharge Instructions: Skin Abscess, Incision and Drainage, Incision and Drainage, Care After. - Prescriptions for Clindamycin HCl 300 mg Oral Capsule - take 1 capsule by ORAL route every 6 hours for 10 days; 40 capsule. Ultracet 37.5- 325 mg Oral Tablet - take 1 tablet by ORAL route every 6 hours - for up to 5 days; do not exceed 8 tablets per day.; 12 tablet. - Medication Reconciliation Form, Thank You Letter, Antibiotic Education, Prescription Opioid Use form. - Follow up: Rohit Lovelace MD; When: 2 - 3 days; Reason: Recheck today's complaints, Continuance of care, Re-evaluation by your physician. Signatures: Dispatcher [employer] EDFausto Dodge RN RN sg Anderson, Corey, MD MD cha Mickail, Joel, PA PA [facility] Zoe Espino RN RN iw Attema, Lee RN RN la1 Corrections: (The following items were deleted from the chart) 08/05 14:34 14:07 08/05/2018 14:07 Discharged to Home. Impression: Cutaneous abscess of abdominal sg wall. Condition is Stable. Forms are Medication Reconciliation Form, Thank You Letter, Antibiotic Education, Prescription Opioid Use. Follow up: Rohit Lovelace; When: 2 - 3 days; Reason: Recheck today's complaints, Continuance of care, Re-evaluation by your physician. marla
--- NOTE | 2018-08-05 14:08 | ER ---
Nurse's Notes [facility] Name: Nayely Patiño Age: 62 yrs Sex: Female : 1955 Arrival Date: 08/05/2018 Time: 10:30 Bed 6 Private MD: Cecily Kwon Diagnosis: Cutaneous abscess of abdominal wall Presentation: 08/05 10:38 Presenting complaint: Patient states: I have what I think is a spider bite on my belly la1 yesterday and the redness is expanding. Transition of care: patient was not received from another setting of care. Onset of symptoms was August 05, 2018. Risk Assessment: Do you want to hurt yourself or someone else? Patient reports no desire to harm self or others. Initial Sepsis Screen: Does the patient meet any 2 criteria? No. Patient's initial sepsis screen is negative. Does the patient have a suspected source of infection? No. Patient's initial sepsis screen is negative. Care prior to arrival: None. 10:38 Method Of Arrival: Ambulatory la1 10:38 Acuity: ALEXI 3 la1 Historical: - Allergies: 10:38 Bactrim; la1 10:38 Iodine; la1 - PMHx: 10:38 Atrial Fib; COPD; la1 - Immunization history:: Adult Immunizations up to date. - Social history:: Smoking status: Patient uses tobacco products, smokes one-half pack cigarettes per day. - Ebola Screening: : No symptoms or risks identified at this time. Screenin:29 Abuse screen: Denies threats or abuse. Denies injuries from another. Nutritional iw screening: No deficits noted. Tuberculosis screening: No symptoms or risk factors identified. Fall Risk IV access (20 points). Assessment: 11:27 General: Appears in no apparent distress. Behavior is calm, cooperative. Pain:. Neuro: iw Level of Consciousness is awake, alert, obeys commands, Oriented to person, place, time, situation, Moves all extremities. Cardiovascular: Patient's skin is warm and dry. Respiratory: Respiratory effort is even, unlabored, Respiratory pattern is regular. Derm: Skin is intact, Skin is redness noted to left abdominal wall, hot to touch Abscess located on left upper quadrant is quarter sized, has no drainage, is hot to touch, is red, is raised. Musculoskeletal: Range of motion: intact in all extremities. 12:36 Reassessment: Patient appears in no apparent distress at this time. Patient and/or iw family updated on plan of care and expected duration. Pain level reassessed. Patient is alert, oriented x 3, equal unlabored respirations, skin warm/dry/pink. Vital Signs: 10:40 Pulse 58; Resp 18; Temp 97.7; Pulse Ox 98% on R/A; Weight 94.8 kg; Height 5 ft. 3 in. la1 (160.02 cm); Pain 7/10; 10:41 BP 117 / 69; la1 12:36 BP 118 / 71; Pulse 59; Resp 16; Pulse Ox 98% on R/A; Pain 7/10; iw 10:40 Body Mass Index 37.02 (94.80 kg, 160.02 cm) la1 ED Course: 10:30 Patient arrived in ED. as 10:30 Cecily Kwon MD is Private Physician. as 10:40 Triage completed. la1 10:40 Arm band placed on left wrist. la1 10:42 Sang Whitaker PA is PHCP. jmm 10:42 Vaibhav Mendoza MD is Attending Physician. jmm 11:07 Zoe Espino RN is Primary Nurse. iw 11:27 Initial lab(s) drawn, by me, sent to lab. Inserted saline lock: 22 gauge in right iw antecubital area, using aseptic technique. Blood collected. 11:30 Patient has correct armband on for positive identification. iw 12:02 Ultrasound completed. Patient tolerated well. sg3 12:03 US Extrmty Nonvasular Limited In Process Unspecified. EDMS 14:03 Assist provider with I \T\ D: of an abscess on Set up I\T\D tray. Performed by Sang Whitaker iw KAVYA Wound packed. Dressing with 4X4s, tape Patient tolerated well. 14:06 Rohit Lovelace MD is Referral Physician. jmm 14:32 IV discontinued, intact, bleeding controlled, No redness/swelling at site. Pressure iw dressing applied. Administered Medications: 12:35 Drug: Clindamycin 900 mg Route: IVPB; Infused Over: 30 mins; Site: right antecubital; iw 13:05 Follow up: IV Status: Completed infusion iw 13:50 Drug: Lidocaine (1 %) 5 mg Route: Infiltration; iw Outcome: 14:07 Discharge ordered by MD. bennett 14:33 Discharged to home ambulatory. iw 14:33 Condition: good 14:33 Discharge instructions given to patient, Instructed on discharge instructions, follow up and referral plans. medication usage, wound care, Demonstrated understanding of instructions, follow-up care, medications, wound care, Prescriptions given X 2. 14:34 Patient left the ED. sg Signatures: Dispatcher [employer] EDMS Fausto Rasheed RN RN Sang Whitaker PA PA jmm Martinez, Amelia as Williams, Irene RN RN Antwan Billingsley RN RN mateo1 Florencia Marsh 3
--- NOTE | 2018-08-05 15:07 | RAD REPORT ---
EXAM DESCRIPTION: US - Extremity Nonvascular Limited - 08/05/2018 12:04 pm CLINICAL HISTORY: abscess of abdomen COMPARISON: No comparisons TECHNIQUE: Real-time sonographic evaluation of the area of interest was performed. FINDINGS: Poorly defined hypoechoic fluid collection is seen in the subcutaneous tissues in the area of interest left abdomen measuring 12 x 4 mm. This likely represents a small subcutaneous abscess.
== END 2018-08-05 14:34 | disposition home or self-care (01) ==
LOC: ER 10:29
PROC: 0J980ZZ Drainage of Abdomen Subcutaneous Tissue and Fascia, Open Approach (ICD-10-PCS; principal; 2018-08-05)
DX: L02.211 Cutaneous abscess of abdominal wall (principal); I48.91 Unspecified atrial fibrillation; J44.9 Chronic obstructive pulmonary disease, unspecified; Z88.1 Allergy status to other antibiotic agents; Z88.8 Allergy status to other drugs, medicaments and biological substances; F17.210 Nicotine dependence, cigarettes, uncomplicated
CPT/HCPCS: 36415; 76882; 80053; 83605; 84145; 85025; 96365; 99284

== ENCOUNTER 2018-08-12 14:49 | Observation (INO) | payer OTHER ==
--- OUTSIDE RECORDS SUMMARY | 2018-08-12 14:52 | XMS REPORT ---
[...] Medications Results No Known Results Summary Purpose eClinicalUrtak Submission
--- OUTSIDE RECORDS SUMMARY | 2018-08-12 14:52 | XMS REPORT ---
[...] Medications Results No Known Results Summary Purpose eClinicalCamerborn Submission
--- OUTSIDE RECORDS SUMMARY | 2018-08-12 14:52 | XMS REPORT ---
[...] Status Dosage System Date Date Symbicort [facility] 42255810952 160-4.5 MCG/ACT September 17, Active 2 puffs Inhalation 2019 Twice daily Albuterol [facility] 38965227794 (2.5 MG/3ML) Active 3 ml unit Sulfate 0.083% dose as Inhalation needed Every 4-6 hours Metoprolol [facility] 89046248208 50 MG Orally Active 1 tablet Tartrate Twice daily with food Eliquis ND 15143478923 5 MG Orally Active 1 tablet Twice daily Sertraline HCl ND 93372196338 50 MG Orally Active 1 tablet Once daily Atorvastatin ND 39359217797 40 MG Orally Active 1 tablet Calcium Once daily in evening Ventolin HFA ND 89848211010 90 MCG/ACT Active 2 puffs as Inhalation needed every 4-6 hrs Flecainide [facility] 53538711600 100 mg Orally Active 1 tablet Acetate Twice daily Results No Known Results Summary Purpose eClinicalWorks Submission
--- OUTSIDE RECORDS SUMMARY | 2018-08-12 14:52 | XMS REPORT ---
[...] Dosage System Date Date Ventolin HFA ND 79838670323 90 MCG/ACT Active 2 puffs as Inhalation needed every 4-6 hrs Atorvastatin ND 31685246530 40 MG Orally Active 1 tablet Calcium Once daily in evening Flecainide [facility] 95310597251 100 mg Orally Active 1 tablet Acetate Twice daily Augmentin [facility] 51692803794 875-125 MG Jun 08, Jun 18, Active 1 tablet Orally every 12 2018 2019 hrs Symbicort [facility] 56222981314 160-4.5 MCG/ACT September 17, Active 2 puffs Inhalation 2018 Twice daily Sertraline HCl [facility] 41487503053 50 MG Orally Active 1 tablet Once daily Metoprolol [facility] 46583257743 50 MG Orally Active 1 tablet Tartrate Twice daily with food Eliquis [facility] 95946874809 5 MG Orally Active 1 tablet Twice daily Albuterol [facility] 04105739618 (2.5 MG/3ML) Active 3 ml unit Sulfate 0.083% dose as Inhalation needed Every 4-6 hours Results Name Result Date Reference Range Unit Abnormality Flag FLU TEST ----A Negative [id number] ----B Negative [id number] STREP A RAPID ----Result Positive [id number] Summary Purpose eClinicalWorks Submission
--- OUTSIDE RECORDS SUMMARY | 2018-08-12 14:52 | XMS REPORT ---
[...] Medications Results No Known Results Summary Purpose [employer] [employer] Submission
--- OUTSIDE RECORDS SUMMARY | 2018-08-12 14:52 | XMS REPORT ---
[...] End Status Dosage System Date Date Albuterol [facility] 86687356998 (2.5 MG/3ML) Active 3 ml unit Sulfate 0.083% dose as Inhalation needed Every 4-6 hours Sertraline HCl ND 54880782343 50 MG Orally Active 1 tablet Once daily Flecainide ND 94432749444 100 mg Orally Active 1 tablet Acetate Twice daily Eliquis [facility] 33178208786 5 MG Orally Active 1 tablet Twice daily Ventolin HFA [facility] 90544463629 90 MCG/ACT Active 2 puffs as Inhalation needed every 4-[address] [facility] 23359143951 40 MG Orally Active 1 tablet Calcium Once daily in evening Symbicort [facility] 37691034385 160-4.5 MCG/ACT September 17, Active 2 puffs Inhalation 2018 Twice daily Metoprolol [facility] 50648853514 50 MG Orally Active 1 tablet Tartrate Twice daily with food Results Name Result Date Reference Range Unit Abnormality Flag STREP A RAPID ----Result Negative [id number] Summary Purpose eClinicalWorks Submission
[2018-08-12] MEDS ORDERED: DOXYCYCLINE 100 MG CAP PO ONE (17:06)
[2018-08-12] MEDS ORDERED: MUPIROCIN 2% OINT 22GM TUBE TOP ONE (17:06)
--- NOTE | 2018-08-12 17:30 | EDPHYS ---
Physician Documentation [facility] Name: Nayely Patiño Age: 62 yrs Sex: Female : 1955 Arrival Date: 08/12/2018 Time: 14:51 Bed 19 Private MD: Cecily Kwon ED Physician Vaibhav Mendoza HPI: 08/12 16:04 This 62 yrs old Female presents to ER via Ambulatory with complaints of Wound jaime Check. 16:04 Patient presents to ED for recheck of: abscess. The affected area is on the abdomen. jaime Previous treatment: The patient was initially treated 7 day(s) ago. Progress: The patient reports decreased drainage, pain, swelling. The patient has experienced similar episodes in the past, a few times. Historical: - Allergies: 15:13 Bactrim; aa5 15:13 IV iodine; aa5 - PMHx: 15:13 Atrial Fib; COPD; aa5 - PSHx: 15:13 back sx-lumbar; thumb; left knee; aa5 - Immunization history:: Flu vaccine is up to date. - Social history:: Smoking status: Patient uses tobacco products, 3-4 cigarettes a day . - Ebola Screening: : No symptoms or risks identified at this time. - Family history:: not pertinent. ROS: 16:04 Constitutional: Negative for fever, chills, and weight loss, Eyes: Negative for injury, jaime pain, redness, and discharge, ENT: Negative for injury, pain, and discharge, Neck: Negative for injury, pain, and swelling, Cardiovascular: Negative for chest pain, palpitations, and edema, Respiratory: Negative for shortness of breath, cough, wheezing, and pleuritic chest pain, Abdomen/GI: Negative for abdominal pain, nausea, vomiting, diarrhea, and constipation, Back: Negative for injury and pain, : Negative for injury, bleeding, discharge, and swelling, MS/Extremity: Negative for injury and deformity, Neuro: Negative for headache, weakness, numbness, tingling, and seizure, Psych: Negative for depression, anxiety, suicide ideation, homicidal ideation, and hallucinations, Allergy/Immunology: Negative for hives, rash, and allergies, Endocrine: Negative for neck swelling, polydipsia, polyuria, polyphagia, and marked weight changes, Hematologic/Lymphatic: Negative for swollen nodes, abnormal bleeding, and unusual bruising. 16:04 Skin: Positive for 16:04 Skin: Positive for swelling, of the abdomen. jaime Exam: 16:04 Constitutional: This is a well developed, well nourished patient who is awake, alert, jaime and in no acute distress. Head/Face: Normocephalic, atraumatic. Eyes: Pupils equal round and reactive to light, extra-ocular motions intact. Lids and lashes normal. Conjunctiva and sclera are non-icteric and not injected. Cornea within normal limits. Periorbital areas with no swelling, redness, or edema. ENT: Nares patent. No nasal discharge, no septal abnormalities noted. Tympanic membranes are normal and external auditory canals are clear. Oropharynx with no redness, swelling, or masses, exudates, or evidence of obstruction, uvula midline. Mucous membranes moist. Neck: Trachea midline, no thyromegaly or masses palpated, and no cervical lymphadenopathy. Supple, full range of motion without nuchal rigidity, or vertebral point tenderness. No Meningismus. Chest/axilla: Normal chest wall appearance and motion. Nontender with no deformity. No lesions are appreciated. Cardiovascular: Regular rate and rhythm with a normal S1 and S2. No gallops, murmurs, or rubs. Normal PMI, no JVD. No pulse deficits. Respiratory: Lungs have equal breath sounds bilaterally, clear to auscultation and percussion. No rales, rhonchi or wheezes noted. No increased work of breathing, no retractions or nasal flaring. Abdomen/GI: Soft, non-tender, with normal bowel sounds. No distension or tympany. No guarding or rebound. No evidence of tenderness throughout. Back: No spinal tenderness. No costovertebral tenderness. Full range of motion. Female : Normal external genitalia. MS/ Extremity: Pulses equal, no cyanosis. Neurovascular intact. Full, normal range of motion. Neuro: Awake and alert, GCS 15, oriented to person, place, time, and situation. Cranial nerves II-XII grossly intact. Motor strength 5/5 in all extremities. Sensory grossly intact. Cerebellar exam normal. Normal gait. Psych: Awake, alert, with orientation to person, place and time. Behavior, mood, and affect are within normal limits. 16:04 Skin: induration, that is mild is noted, Wound recheck: Abscess: the wound has improved, decreased erythema, more pain. Vital Signs: 15:14 BP 125 / 63; Pulse 55; Resp 16 S; Temp 97.5(TE); Pulse Ox 96% on R/A; Weight 92.99 kg aa5 (R); Pain 0/10; MDM: 15:57 Patient medically screened. [facility] 08/12 17:26 Order name: Basic Metabolic Panel; Complete Time: 18:55 [facility] 08/12 17:26 Order name: CBC with Diff; Complete Time: 18:23 [facility] 08/12 17:26 Order name: LFT's; Complete Time: 18:55 [facility] 08/12 17:26 Order name: Magnesium; Complete Time: 18:55 [facility] 08/12 17:26 Order name: NT PRO-BNP; Complete Time: 18:55 jaime 08/12 17:26 Order name: PT-INR; Complete Time: 18:23 [facility] 08/12 16:09 Order name: US Extrmty Nonvasular Limited: abdominal wall; Complete Time: 18:23 [facility] 08/12 17:26 Order name: Troponin (emerg Dept Use Only); Complete Time: 18:55 [facility] 08/12 17:26 Order name: XRAY Chest (1 view); Complete Time: 18:42 jaime 08/13 06:34 Order name: CBC with Automated Diff [facility] 08/13 06:46 Order name: Basic Metabolic Panel [facility] 08/12 16:03 Order name: Blood Glucose Level; Complete Time: 16:29 jaime 08/12 17:26 Order name: EKG; Complete Time: 17:27 08/12 17:26 Order name: Cardiac monitoring; Complete Time: 17:41 jaime 08/12 17:26 Order name: EKG - Nurse/Tech; Complete Time: 17:41 [facility] 08/12 17:26 Order name: IV Saline Lock; Complete Time: 17:41 jaime 08/12 17:26 Order name: Labs collected and sent; Complete Time: 17:41 08/12 17:26 Order name: O2 Per Protocol; Complete Time: 17:41 jaime 08/12 17:26 Order name: O2 Sat Monitoring; Complete Time: 17:41 jaime Administered Medications: 16:55 Drug: Doxycycline 200 mg Route: PO; em 17:41 Follow up: Response: No adverse reaction em 18:15 Drug: morphine 2 mg Route: IVP; Site: right forearm; ss 18:58 Follow up: Response: No adverse reaction; Pain is decreased em 18:21 Drug: Clindamycin 900 mg Route: IVPB; Infused Over: 30 mins; Site: right forearm; em 18:59 Follow up: Response: No adverse reaction; IV Status: Completed infusion; IV Intake: 50mlem 18:22 Drug: Zofran 4 mg Route: IVP; Site: right forearm; ss 18:58 Follow up: Response: No adverse reaction em 19:15 Drug: Bactroban Ointment 2 % 1 application Route: Topical; Site: affected area; ed1 21:17 Not Given (Patient Refused): morphine 2 mg IVP once ed1 Point of Care Testing: Blood Glucose: 16:06 Blood Glucose: 93 mg/dL; 5 Ranges: Critical Glucose Levels:Adult <50 mg/dl or >400 mg/dl <40 mg/dl or >180 mg/dl Disposition: 08/12/18 17:29 Hospitalization ordered by Hector Bentley for Inpatient Admission. Preliminary diagnosis are Cutaneous abscess of abdominal wall, Obesity, unspecified. - Bed requested for Telemetry/MedSurg (Inpatient). - Status is Inpatient Admission. iw - Condition is Stable. - Problem is new. - Symptoms have improved. UTI on Admission? No Signatures: Dispatcher [employer] EDMS Rafia Bowman Diana, RN RN dw Anderson, Corey, MD MD cha Munoz, Edgar, [employer]AIRS ASSOCIATE REGULATORY AFFAIRS ASSOCIATE em Zoe Espino RN RN Edelmira Moore RN RN aa5 Kristal Quiroz RN RN Pricilla Stover RN RN ed1 Corrections: (The following items were deleted from the chart) 19:08 17:29 Hospitalization Ordered by Hector Bentley MD for Inpatient Admission. Preliminary dw diagnosis is Cutaneous abscess of abdominal wall; Obesity, unspecified. Bed requested for Telemetry/MedSurg (Inpatient). Status is Inpatient Admission. Condition is Stable. Problem is new. Symptoms have improved. UTI on Admission? No. jaime 08/13 11:10 08/12 19:08 08/12/2018 17:29 Hospitalization Ordered by Hector Bentley MD for Inpatient bd Admission. Preliminary diagnosis is Cutaneous abscess of abdominal wall; Obesity, unspecified. Bed requested for [facility] ER HOLD. Status is Inpatient Admission. Condition is Stable. Problem is new. Symptoms have improved. UTI on Admission? No. dw 08/13 11:53 11:10 08/12/2018 17:29 Hospitalization Ordered by Hector Bentley MD for Inpatient iw Admission. Preliminary diagnosis is Cutaneous abscess of abdominal wall; Obesity, unspecified. Bed requested for Telemetry/MedSurg (Inpatient). Status is Inpatient Admission. Condition is Stable. Problem is new. Symptoms have improved. UTI on Admission? No. bd
--- NOTE | 2018-08-12 17:30 | ER ---
Nurse's Notes [facility] Name: Nayely Patiño Age: 62 yrs Sex: Female : 1955 Arrival Date: 08/12/2018 Time: 14:51 Bed 19 Private MD: Cecily Kwon Diagnosis: Cutaneous abscess of abdominal wall;Obesity, unspecified Presentation: 08/12 15:10 Presenting complaint: Patient states: "I had an abscess on my abdomen drained last week aa5 and I think I had an allergic reaction to the tape because I have skin tears and now it looks like it's infected". Pt reports she is still taking the antibiotics prescribed. Transition of care: patient was not received from another setting of care. Onset of symptoms was July 2018. Risk Assessment: Do you want to hurt yourself or someone else? Patient reports no desire to harm self or others. Initial Sepsis Screen: Does the patient meet any 2 criteria? No. Patient's initial sepsis screen is negative. Does the patient have a suspected source of infection? No. Patient's initial sepsis screen is negative. Care prior to arrival: None. 15:10 Method Of Arrival: Ambulatory aa5 15:10 Acuity: ALEXI 3 aa5 Triage Assessment: 08/13 11:53 General: Appears in no apparent distress. iw Historical: - Allergies: 08/12 15:13 Bactrim; aa5 15:13 IV iodine; aa5 - PMHx: 15:13 Atrial Fib; COPD; aa5 - PSHx: 15:13 back sx-lumbar; thumb; left knee; aa5 - Immunization history:: Flu vaccine is up to date. - Social history:: Smoking status: Patient uses tobacco products, 3-4 cigarettes a day . - Ebola Screening: : No symptoms or risks identified at this time. - Family history:: not pertinent. Screenin:45 Abuse screen: Denies threats or abuse. Nutritional screening: No deficits noted. em Tuberculosis screening: No symptoms or risk factors identified. Fall Risk None identified. Assessment: 16:42 Reassessment: Patient appears in no apparent distress at this time. Patient and/or em family updated on plan of care and expected duration. Pain level reassessed. Patient is alert, oriented x 3, equal unlabored respirations, skin warm/dry/pink. pending US. 08/13 11:17 Reassessment: 2nd floor contacted, erika with [facility], reports the receiving nurse is ready sg but there is no bed in the assigned room, requesting to call back when the bed is in the room. 11:18 Reassessment: Patient appears in no apparent distress at this time. 2nd floor sg contacted, reported that the pt is on a hospital bed at this time, report to be given, pt updated, will transport to 2nd floor. Vital Signs: 08/12 15:14 BP 125 / 63; Pulse 55; Resp 16 S; Temp 97.5(TE); Pulse Ox 96% on R/A; Weight 92.99 kg aa5 (R); Pain 0/10; ED Course: 14:51 Patient arrived in ED. as 14:51 Cecily Kwon MD is Private Physician. as 15:10 Arm band placed on. aa5 15:11 Triage completed. aa5 15:37 Guillermo Mane LVN is Primary Nurse. em 15:57 Vaibhav Mendoza MD is Attending Physician. jaime 16:06 Patient has correct armband on for positive identification. Bed in low position. Call mh5 light in reach. Pulse ox on. NIBP on. 17:28 US Extrmty Nonvasular Limited: abdominal wall In Process Unspecified. EDMS 17:28 Hector Bentley MD is Hospitalizing Provider. jaime 18:00 EKG done, by ED staff, reviewed by Vaibhav Mendoza MD. mh5 18:04 XRAY Chest (1 view) In Process Unspecified. EDMS 19:12 Primary Nurse role handed off by Guillermo Mane LVN ed1 19:12 Pricilla Stover, RN is Primary Nurse. ed1 21:12 No provider procedures requiring assistance completed. Patient admitted, IV remains in ed1 place. intact, No redness/swelling at site. 08/13 07:04 Primary Nurse role handed off by Pricilla Stover RN ed1 10:33 Fausto Rasheed, SYLVIA is Primary Nurse. sg Administered Medications: 08/12 16:55 Drug: Doxycycline 200 mg Route: PO; em 17:41 Follow up: Response: No adverse reaction em 18:15 Drug: morphine 2 mg Route: IVP; Site: right forearm; ss 18:58 Follow up: Response: No adverse reaction; Pain is decreased em 18:21 Drug: Clindamycin 900 mg Route: IVPB; Infused Over: 30 mins; Site: right forearm; em 18:59 Follow up: Response: No adverse reaction; IV Status: Completed infusion; IV Intake: 50mlem 18:22 Drug: Zofran 4 mg Route: IVP; Site: right forearm; ss 18:58 Follow up: Response: No adverse reaction em 19:15 Drug: Bactroban Ointment 2 % 1 application Route: Topical; Site: affected area; ed1 21:17 Not Given (Patient Refused): morphine 2 mg IVP once ed1 Point of Care Testing: Blood Glucose: 16:06 Blood Glucose: 93 mg/dL; mh5 Ranges: Intake: 18:59 IV: 50ml; Total: 50ml. em Outcome: 17:29 Decision to Hospitalize by Provider. jaime 21:12 Admitted to ER Hold. Please see [facility] for further documentation. ed1 21:12 Condition: stable 21:12 Discharge instructions given to patient, Instructed on the need for admit, Demonstrated understanding of instructions. 04 11:53 Patient left the ED. iw Signatures: Dispatcher [employer] EDMS Fausto Rasheed RN RN sg Anderson, Corey, MD MD cha Munoz, Edgar, JET PILOT JET PILOT em Faith Lovelace as Zoe Espino, SYLVIA WARD Edelmira Moore, SYLVIA castro5 Kristal Quiroz RN RN ss Riggs, Erika, RN RN ed1 Alexandra Lovelace [facility] Corrections: (The following items were deleted from the chart) 08/12 19:00 18:59 IV Status: Completed infusion; IV Intake: 50ml em em 21:19 21:18 Bactroban Ointment 2 % 1 application Topical in affected area ed1 ed1
--- NOTE | 2018-08-12 17:36 | RAD REPORT ---
EXAM DESCRIPTION: US - Extremity Nonvascular Limited - 08/12/2018 5:27 pm CLINICAL HISTORY: Palpable mass and pain left upper abdomen soft tissues COMPARISON: August 05 FINDINGS: In the subcutaneous fatty tissues just deep to the skin there are 2 hypoechoic masses laure uring 7 x 4 mm and 6 x 3 mm. These collections are in the same proximity as the single larger finding detailed August 05. Small abscess collections remain the primary etiology. Old hematoma changes are po ssible if there has been trauma. No evidence for a worsening or progressive process since August 05. IMPRESSION: Two small 7 mm and 6 mm hypoechoic collections are present just deep to the skin surface upper left abdomen. A single larger finding was seen August 05. The 2 small masses likely represent remnant abscess colle ctions not fully resolved. Small seroma/ hematoma etiology would be possible as well.
[2018-08-12] MEDS ORDERED: MORPHINE 4 MG/ML SYR ONE (17:49)
[2018-08-12] MEDS ORDERED: CLINDAMYCIN 900MG/D5W 900 MG/50 ML IVPB IV ONE (17:49)
[2018-08-12] MEDS ORDERED: ONDANSETRON 4 MG/2 ML VIAL ONE (17:49)
[2018-08-12 18:17] LABS: Absolute Lymphocytes (CBC) 1.9 K/uL (0.7-4.9); Absolute Monocytes 0.6 K/uL (0.1-1.3); Absolute Neutrophil 5.4 K/uL (1.8-8.0); Basophils % 0.9 % (0-1.3); Eosinophils % 2.5 % (0-4.4); Hematocrit 41.6 % (36.0-45.0); Lymphocytes % 23.2 % (15.3-44.8); MPV 8.3 fL (7.6-11.3); Monocytes % 6.8 % (3.3-12.3); RBC Red Blood Cell Count 4.84 M/uL (3.86-4.86)
[2018-08-12 18:19] LABS: Protime INR 1.19
--- NOTE | 2018-08-12 18:35 | RAD REPORT ---
EXAM DESCRIPTION: RAD - Chest Single View - 08/12/2018 6:04 pm CLINICAL HISTORY: Cough COMPARISON: June 10 TECHNIQUE: AP portable chest image was obtained 1756 hours . FINDINGS: No peripheral mass consolidation. No failure or volume overload. Lung markings are similar to comparison. Heart and vasculature are normal. No measurable pleural effusion and no pneumothorax. No acute bony abnormality seen. No acute aortic findings suspected. IMPRESSION: No acute cardiopulmonary process. No significant change from comparison.
[2018-08-12 18:42] LABS: ALT/SGPT 29 U/L (12-78); AST/SGOT 22 U/L (15-37); Albumin 3.6 g/dL (3.4-5.0); Alkaline Phosphatase 115 U/L (45-117); BUN Blood Urea Nitrogen 24 mg/dL (7-18); Bicarbonate 27 mmol/L (21-32); Bilirubin Direct < 0.1 mg/dL (0-0.2); Bilirubin Total 0.3 mg/dL (0.2-1.0); Glucose Level 91 mg/dL (74-106); Magnesium 2.1 mg/dL (1.8-2.4); NT PRO-BNP 775 pg/mL (<125); Potassium 4.6 mmol/L (3.5-5.1); Protein, Total 8.1 g/dL (6.4-8.2); Sodium Level 141 mmol/L (136-145); Troponin (Emerg Dept Use Only) < 0.02 ng/mL (0.0-0.045)
[2018-08-12] MEDS ORDERED: ACETAMINOPHEN 500 MG TAB PO PRN (19:52)
[2018-08-12] MEDS ORDERED: MORPHINE 4 MG/ML SYR IV PRN (19:52)
[2018-08-12] MEDS ORDERED: ONDANSETRON 4 MG/2 ML VIAL IV PRN (19:52)
[2018-08-12] MEDS: NA CHLORIDE 0.9% 1,000 ML IV SCH (20:00)
[2018-08-12] MEDS ORDERED: VANCOMYCIN/NS 1 gm 1 GM/250 ML BAG IVPB SCH (20:00)
[2018-08-12] MEDS: MUPIROCIN 2% OINT 22GM TUBE TOP SCH (21:00)
[2018-08-12] MEDS ORDERED: VANCOMYCIN 1 GM/VIAL ONE (21:36)
[2018-08-12] MEDS ORDERED: NA CHLORIDE 0.9% 250 ML ONE (21:36)
[2018-08-12] MEDS ORDERED: NA CHLORIDE 0.9% 1,000 ML ONE (21:37)
[2018-08-13] MEDS: AMPICILLIN/SULBACT 3 GM in NA CHLORIDE 0.9% 100 ML IVPB SCH ×3 (00:56→14:35)
[2018-08-13] MEDS ORDERED: AMPICILLIN/SULBACT 1.5GM VIAL ONE (01:00)
[2018-08-13] MEDS ORDERED: NA CHLORIDE 0.9% 100 ML IV ONE (01:01)
[2018-08-13 01:16] VITALS: BMI 36.6
--- NOTE | 2018-08-13 04:43 | P.HP ---
Certification for Inpatient Patient admitted to: Observation With expected LOS: <2 Midnights Patient will require the following post-hospital care: None Practitioner: I am a practitioner with admitting privileges, knowledge of patient current condition, hospital course, and medical plan of care. Services: Services provided to patient in accordance with Admission requirements found in Title 42 Section 412.3 of the Code of Federal Regulations Patient History Date of Service: 08/12/18 Reason for admission: Abdominal wall cellulitis History of Present Illness: Patient is a 62-year-old female who came to the hospital about 1 week ago was swelling in the left side of her abdomen. She believes she was bit by a spider and she had a large boil. This was lanced by the ER physician and she was sent home on IV antibiotics to follow up with Dr. Lovelace. She never made it to the appointment but she states she was taking antibiotics orally. However, she has some worsening of the cellulitic region and she came in back into the ER. At that time, she will be admitted to the hospital for treatment for the abscess. She will need to continue oral antibiotics and will need to continue warm up. Allergies Iodinated Contrast- Oral and IV Dye Allergy (Verified 06/10/18 14:38) Hives sulfamethoxazole [From Bactrim] Allergy (Verified 06/10/18 14:38) Hives trimethoprim [From Bactrim] Allergy (Verified 06/10/18 14:38) Hives Home Medications: Albuterol Inhaler [Ventolin Inhaler*] 2 puff IH Q6H PRN 06/10/18 Apixaban [Eliquis] 5 mg PO BID 06/10/18 Atorvastatin Calcium [Lipitor] 40 mg PO BEDTIME 06/10/18 Flecainide [Tambocor*] 100 mg PO BID 06/10/18 Metoprolol Tartrate [Lopressor*] 50 mg PO BID 06/10/18 Sertraline HCl 50 mg PO DAILY 06/10/18 Fluticasone/Umeclidin/Vilanter [Trelegy Ellipta 100-62.5-25] 1 puff IH DAILY - Past Medical/Surgical History Has patient received pneumonia vaccine in the past: Yes Diabetic: No -: CVA no residual 10/2016 -: A-fibb & flutter. -: COPD -: sleep apnea wears C-pap. -: dental issues -: Back surg- laminectomy, spinal fusions -: closure of hand cut on rt. -: Left knee scope -: cardiac ablasion - Family History Mother Medical History: Heart disease, Hypertension Father Medical History: Heart disease, Lung disease, Diabetes - Social History Smoking Status: Light Tobacco smoker (1-9 cigarettes/day) Alcohol use: Yes CD- Drugs: No Caffeine use: Yes Place of Residence: Home Review of Systems 10-point ROS is otherwise unremarkable Physical Examination - Vital Signs Temperature: 98.5 F Blood Pressure: 124/79 Pulse: 67 Respirations: 14 Pulse Ox (%): 97 - Physical Exam General: Alert, In no apparent distress, Oriented x2, Oriented x1 HEENT: Atraumatic, PERRLA, Mucous membr. moist/pink, EOMI, Sclerae nonicteric Neck: Supple, 2+ carotid pulse no bruit, No LAD, Without JVD or thyroid abnormality Respiratory: Clear to auscultation bilaterally, Normal air movement Cardiovascular: Regular rate/rhythm, Normal S1 S2 Gastrointestinal: Normal bowel sounds, Soft and benign, Non-distended, No tenderness, No masses, No rebound, No guarding Musculoskeletal: No clubbing, No tenderness, Swelling, Erythema, Tenderness, Warmth Integumentary: No ulcers, Diabetic ulcer Neurological: Normal gait, Normal speech, Normal strength at 5/5 x4 extr, Normal tone, Sensation intact, Cranial nerves 3-12 intact, Normal affect Lymphatics: No axilla or inguinal lymphadenopathy - Studies Laboratory Data (last 24 hrs) 08/12/18 18:05: PT 13.9 H, INR 1.19 08/12/18 18:05: WBC 8.1, Hgb 13.7, Hct 41.6, Plt Count 256 D 08/12/18 18:05: Sodium 141, Potassium 4.6, BUN 24 H, Creatinine 1.19, Glucose 91 , Magnesium 2.1, Total Bilirubin 0.3, AST 22, ALT 29, Alkaline Phosphatase 115 Assessment & Plan - Problems (Diagnosis) (1) Abdominal wall cellulitis Current Visit: Yes Status: Acute (2) COPD with acute exacerbation Onset Date: 06/11/18 Current Visit: No Status: Acute (3) CVA (cerebral vascular accident) Current Visit: Yes Status: Acute (4) CAD (coronary artery disease) Current Visit: Yes Status: Acute - Plan 1. Continue with IV antibiotic 2. Continue with local wound care 3. Wound care consultation/surgical consultation 4. Gentle IV hydration 5. Monitor CBC 6. Strict blood sugar monitoring 7. Pain control 8. GI and DVT prophylaxis Discharge Plan: Home Plan to discharge in: 48 Hours - Advance Directives Does patient have a Living Will: No Does patient have a Durable POA for Healthcare: No - Code Status/Comfort Care Code Status Assessed: Yes Code Status: Full Code Critical Care: No Time Spent Managing PTS Care (In Minutes): 45
--- NOTE | 2018-08-13 05:52 | EKG ---
Test Date: 2018-08-12 Test Time: 17:44:08 Production Boring Machine Operator: KAREN MEASUREMENT RESULTS: Intervals: Rate: 53 IN: 130 QRSD: 76 QT: 454 QTc: 426 [place]: P: 83 IN: 130 QRS: 97 T: 80 INTERPRETIVE STATEMENTS: Sinus bradycardia with sinus arrhythmia Rightward axis Nonspecific ST abnormality Abnormal ECG Compared to ECG 06/10/2018 10:51:06 Sinus rhythm no longer present Ventricular premature complex(es) no longer present ST (T wave) deviation still present Electronically Signed On 08-13-18 05:51:35 CDT by Jose Salmeron
[2018-08-13 06:24] LABS: Absolute Lymphocytes (CBC) 1.8 K/uL (0.7-4.9); Absolute Monocytes 0.5 K/uL (0.1-1.3); Absolute Neutrophil 3.5 K/uL (1.8-8.0); Basophils % 0.7 % (0-1.3); Eosinophils % 3.8 % (0-4.4); Hematocrit 38.6 % (36.0-45.0); Lymphocytes % 29.4 % (15.3-44.8); MPV 8.5 fL (7.6-11.3); Monocytes % 8.1 % (3.3-12.3); RBC Red Blood Cell Count 4.44 M/uL (3.86-4.86)
[2018-08-13] MEDS ORDERED: ONDANSETRON 4 MG/2 ML VIAL ONE (06:25)
[2018-08-13] MEDS ORDERED: MORPHINE 4 MG/ML SYR ONE (06:25)
[2018-08-13 06:45] LABS: Potassium 4.4 mmol/L (3.5-5.1)
[2018-08-13] MEDS ORDERED: VANCOMYCIN 1.5 GM in NA CHLORIDE 0.9% 500 ML IVPB SCH (09:00)
[2018-08-13] MEDS: MUPIROCIN 2% OINT 22GM TUBE TOP SCH (09:00)
[2018-08-13] MEDS: NA CHLORIDE 0.9% 1,000 ML IV SCH (09:20)
[2018-08-13] MEDS ORDERED: NA CHLORIDE 0.9% 1,000 ML ONE (11:44)
[2018-08-13 11:58] VITALS: O2SAT 96
--- NOTE | 2018-08-13 13:12 | P.CNS ---
Date of Consult: 08/13/18 PC: I was asked to see this 66-year-old female regards to abdominal wall abscess. HPC: Patient apparently is had this abdominal wall abscess incised and drained. She was scheduled have a follow-up an appointment with the surgeon. The appointment was not kept. She came in complaining of pain tenderness and erythema in the area. PMH: Diabetes, hypertension, PSHx: Previous orthopedic procedures previous I and D's of abscesses SOC: Listed and noted as above SYS REVIEW: States she is otherwise in good health O/E awake alert stable HEENT: Within normal limit Chest: Temp entry equal bilaterally ABD: On the left side of the abdominal wall there is an old scarred area about a cm half below this there is an open what appears be surgical wound. It is not draining at the moment. There is no erythema. She does have some firmness around it but there is no pus or purulence associated with it LOCO: Intact DATA: Within normal limit IMPRESSION: Surgically drained abscess, appears to be responding to antibiotics PLAN: The patient does not require any further intervention into this abscess of her anterior abdominal wall. She needs to be compliant with her medication. She is more than welcome to come see me next week were after she is discharged.
[2018-08-13 14:01] VITALS: BP 108/50; TEMP 97
--- NOTE | 2018-08-13 17:23 | P.SSS ---
Patient History Date of Service: 08/13/18 Reason for admission: Abdominal wall cellulitis History of Present Illness: Patient is a 62-year-old female who came to the hospital about 1 week ago was swelling in the left side of her abdomen. She believes she was bit by a spider and she had a large boil. This was lanced by the ER physician and she was sent home on IV antibiotics to follow up with Dr. Lovelace. She never made it to the appointment but she states she was taking antibiotics orally. However, she has some worsening of the cellulitic region and she came in back into the ER. At that time, she will be admitted to the hospital for treatment for the abscess. She will need to continue oral antibiotics and will need to continue warm up. Allergies Iodinated Contrast- Oral and IV Dye Allergy (Verified 06/10/18 14:38) Hives sulfamethoxazole [From Bactrim] Allergy (Verified 06/10/18 14:38) Hives trimethoprim [From Bactrim] Allergy (Verified 06/10/18 14:38) Hives Home Medications: Albuterol Inhaler [Ventolin Inhaler*] 2 puff IH Q6H PRN 06/10/18 Apixaban [Eliquis] 5 mg PO BID 06/10/18 Atorvastatin Calcium [Lipitor] 40 mg PO BEDTIME 06/10/18 Flecainide [Tambocor*] 100 mg PO BID 06/10/18 Metoprolol Tartrate [Lopressor*] 50 mg PO BID 06/10/18 Sertraline HCl 50 mg PO DAILY 06/10/18 Fluticasone/Umeclidin/Vilanter [Trelegy Ellipta 100-62.5-25] 1 puff IH DAILY Mupirocin Oint [Bactroban 2% Ointment*] 1 appl TOP BID #1 tube 08/13/18 Tramadol HCl [Ultram] 50 mg PO Q6HP PRN #12 tablet 08/13/18 - Past Medical/Surgical History Has patient received pneumonia vaccine in the past: Yes Diabetic: No -: CVA no residual 10/2016 -: A-fibb & flutter. -: COPD -: sleep apnea wears C-pap. -: dental issues -: Back surg- laminectomy, spinal fusions -: closure of hand cut on rt. -: Left knee scope -: cardiac ablasion - Family History Mother -: Heart disease, Hypertension Father -: Heart disease, Lung disease, Diabetes - Social History Smoking Status: Light Tobacco smoker (1-9 cigarettes/day) Alcohol use: Yes CD- Drugs: No Caffeine use: Yes Place of Residence: Home Review of Systems 10-point ROS is otherwise unremarkable Physical Examination - Vital Signs Temperature: 97 F Blood Pressure: 108/50 Pulse: 48 Respirations: 16 Pulse Ox (%): 96 - Physical Exam General: Alert, In no apparent distress, Oriented x3 Respiratory: Clear to auscultation bilaterally, Normal air movement Cardiovascular: Regular rate/rhythm, Normal S1 S2 Gastrointestinal: Normal bowel sounds, No tenderness Integumentary: Skin lesion (Surgical wound on left abdominal, not draining. Erythema resolved. Not warm to touch) - Studies Laboratory Data (last 24 hrs) 08/12/18 18:05: PT 13.9 H, INR 1.19 08/12/18 18:05: WBC 8.1, Hgb 13.7, Hct 41.6, Plt Count 256 D 08/12/18 18:05: Sodium 141, Potassium 4.6, BUN 24 H, Creatinine 1.19, Glucose 91 , Magnesium 2.1, Total Bilirubin 0.3, AST 22, ALT 29, Alkaline Phosphatase 115 Treatment Summary: Patient was admitted for abdominal wall cellulitis. She was previously seen not too long ago from an abscess, which was drained surgically. She was then discharged on antibiotics and with instructions to follow up with her surgeon. She did not follow up. She returned this time with increasing redness surrounding the abscess. She states that she had teeth on there that for pursed can, causing it to turn red. She was admitted for cellulitis. General surgery was consulted. Per General Surgery, no surgical intervention or other interventions required at this time. She was cleared for discharge from surgical wound of view to complete the course of oral antibiotics that she previously started. She otherwise remained stable throughout the stay. She already has a prescription for clindamycin that she was taking. She was instructed to complete that course and follow up with general surgery as previously instructed. She will also have a follow up appointment with her primary care physician in 2-3 days. Prior to discharge, she was alert oriented x3, in no acute distress. Her abscess was not currently draining, her redness had improved. - Disposition Discharge Date: 08/13/18 Disposition: ROUTINE DISCHARGE Condition: GOOD Consultations: General Surgery, Dr. Cerrato Patient Discharge Instructions: Please continue your antibiotics as prescribed previously. Please follow up with the primary care physician this week. Please follow up with general surgery as you had previously been instructed. Please return to the emergency room for worsening symptoms Diet: AHA Activity: Ad everardo Time Spent Managing Pts Care (In Minutes): 35
== END 2018-08-13 18:40 | disposition home or self-care (01) ==
LOC: ER 14:49 → INTOOBSV 18:18 → ERHOLD 18:18 → 2ND 08-13 11:28
PROVIDERS: ADMIT Family Medicine; ATTEND Family Medicine
DX: L03.311 Cellulitis of abdominal wall (principal); J44.1 Chronic obstructive pulmonary disease with (acute) exacerbation; I63.9 Cerebral infarction, unspecified; I25.10 Atherosclerotic heart disease of native coronary artery without angina pectoris; G47.30 Sleep apnea, unspecified; F17.210 Nicotine dependence, cigarettes, uncomplicated; Z88.1 Allergy status to other antibiotic agents; Z91.09 Other allergy status, other than to drugs and biological substances
CPT/HCPCS: 96365; 93005; 85025 ×2; 80048 ×2; 36415; 83735; 85610; 82962; 80076; 84484; 83880; 71045; 76882; 96375; 99285; J7030 ×2; J0295 ×2; J2405 ×2; G0378 ×2

== ENCOUNTER 2021-08-04 05:45 | Inpatient (IN) | payer OTHER ==
--- OUTSIDE RECORDS SUMMARY | 2021-08-04 05:47 | XMS REPORT | Continuity of Care Document ---
:1955 Author Organization [facility] t Address [address] [place] [address] Care Team Providers Name Role Phone Viky Polk Primary Care Physician Trae Polk Attending Clinician Unavailable Doyle Attending Clinician Unavailable Jl Perales Attending Clinician Jl PERALES Attending Clinician Unavailable Payers Payer Name Policy Type Policy Number Effective Date Expiration Date S ource Problems This patient has no known problems. Allergies, Adverse Reactions, Alerts Allergy Allergy Status Severity Reaction(s) Onset Inactive Treating Comm ents Source Name Type Date Date Clinician NO KNOWN Drug Active Univers ALLERGIE Class [facility] of [facility] contrast Adverse Active hives [facility] dye Reaction [facility] Bactrim Adverse Active Info Not [facility] Reaction Available [facility] Social History Social Habit Start Date Stop Date Quantity Comments Source Sex Assigned At [birth year] [facility] 00:00:00 00:00:00 [facility] Smoking Status Start Date Stop Date Source Unknown if ever smoked [facility] Medications Ordered Filled Start Stop Current Ordering Indication Dosage Frequency Signature Comments Components Source Medication Medication Date Date Medication? Clinician (SIG) Name Name Triamcinolo Triamcinolo 0 Yes Cecily [address] [facility] ne ne 6-08 [facility] applicatio [facility] - Acetonide Acetonide 00:00: n to Mem [facility]ria 00 affected l area([facility]) [facility] Albuterol Albuterol Yes Cecily [address] [facility] Sulfate HFA Sulfate HFA 6-08 [facility] needed [facility] Uloric Uloric 2020- No Cecily [address] [facility] 3-27 12-22 [facility] Nitrofurant Nitrofurant Yes Cecily [address] [facility] oin Monohyd oin Monohyd 1-03 Millender at bedtime [facility]ro Macro 00:00: with food [facility] Trelegy Trelegy 2018-05 Yes Cecily [address] [facility] Ellipta Ellipta 0-13 Millender [facility] - [facility] Flecainide Flecainide Yes Cecily [address] [facility] Acetate Acetate [facility] Ventolin Ventolin Yes Cecily [address] [facility] HFA HFA [facility] needed [facility] Vitamin B12 Vitamin B12 Yes Cecily not [facility] Millender defined [facility] Vitamin C Vitamin C Yes Cecily [address] [facility]ender [facility] Eliquis Eliquis Yes Cecily [address] [facility] Millender [facility] Atorvastati Atorvastati Yes Cecily [address] [facility] n Calcium n Calcium Millender in evening [facility] Zinc Zinc Yes Cecily not [facility] Millender defined [facility] Vitamin D3 Vitamin D3 Yes Cecily [address] [facility] Millender [facility] Fish Oil Fish Oil Yes Cecily [address] [facility] (otc) [facility] Sertraline Sertraline Yes Cecily [address] [facility] HCl HCl [facility]ender [facility] Albuterol Albuterol Yes Cecily [address] [facility] Sulfate Sulfate Millender dose as [facility] Metoprolol Metoprolol Yes Cecily [address] [facility] Tartrate Tartrate [facility] with food [facility] Allopurinol Allopurinol 2020- No Cecily [address] [facility] 10-15 Millender [facility]:00 [facility] :00 l [facility] [place] [facility] Immunizations Ordered Filled Immunization Date Status Comments Sourc e Immunization Name Name Flucelvax - single Flucelvax - single 2020-01-[address] [facility] - dose syringe dose syringe 00:00:00 [facility] Procedures Procedure Date / Time Performing Clinician Source Performed NO SHOW OR MISSED 2021-02-08 21:13:33 Doctor Unassigned, [facility] APPOINTMENT POLICY [facility] ACKNOWLEDGEMENT [facility] PATIENT FINANCIAL 2021-02-08 21:13:07 Doctor Unassigned, [facility] POLICY [facility] NOTICE OF BILLING 2021-02-08 21:12:39 Doctor Unassigned, [facility] PRACTICES FOR MEDICARE [facility] PATIENTS NOTICE OF PRIVACY 2021-02-08 21:12:09 Doctor Unassigned, [facility] PRACTICES [facility] CONSENT/REFUSAL FOR 2021-02-08 21:11:37 Doctor Unassigned, [facility] DIAGNOSIS AND TREATMENT [facility] ASSIGNMENT OF BENEFITS 2021-02-08 21:11:17 Doctor Unassigned, [facility] Encounters Start End Encounter Admission Attending Care Care Encounter Source Date/Time Date/Time Type Type Clinicians Facility Department ID 2021-07-08 Outpatient Polk, Na [facility] [id number] [facility] [address] [facility]05[facility]01 [facility] 2021-07-06 [facility] [id number] [facility] [facility]:10[facility]00 [facility] 2021-05-26 [facility] [id number] [facility] 13:47:11 [id number] [facility] 2021-05-26 [facility] [id number] [facility] 13[facility]46:34 [id number] [facility] 2021-05-26 [facility] [id number] 12[facility]40:43 [id number] [facility] 2021-05-26 Outpatient Polk, Na [facility] [id number] [facility] 12:37:49 [id number] [facility] 2021-05-26 Outpatient Polk, Na [facility] [id number] [facility] 12:37:17 [id number] [facility] 2021-05-26 Outpatient Polk, Na [facility] [id number] 12:36:39 [id number] [facility] 2021-05-26 Outpatient Polk, Na [facility] [id number] [facility] 12:36:04 [id number] [facility] 2021-05-26 [facility] [id number] [facility] 12:34:57 [id number] [facility] 2021-05-26 Out[facility] Polk, Na [facility] [id number] [facility] 12:09:50 [id number] [facility] 2021-05-26 Out[facility] Doyle, [facility] [id number] 12:04:48 Cecily [id number] [facility] 2021-05-26 Out[facility] Doyle, [facility] [id number] 10[facility]57:23 Cecily [id number] [facility] 2021-07-08 2021-07-08 ambulatory [facility] [id number] [facility] 2021-04-08 2021-04-08 ambulatory [facility] [id number] [facility] 2021-02-08 2021-02-08 [facility] [id number] Univers 16:00:00 23:59:00 Encounter Quin Jaquez [id number] [facility] [id number] [facility] [id number] [address] 2021-02-08 2021-02-08 Outpatient R FRANCISCO, [facility] [id number] Univers 00:00:00 00:00:00 QUIN [facility] 2021-01-07 2021-01-07 Outpatient [facility] [id number] [facility] 2020-10-07 2020-10-07 Outpatient [facility] [id number] [facility] 2020-08-25 2020-08-25 Outpatient [facility] [id number] [facility] 2020-07-07 2020-07-07 Outpatient [facility] [id number] [facility] 2020-04-21 2020-04-21 Outpatient [facility] [id number] [facility] 2020-04-10 2020-04-10 Outpatient [facility] [id number] [facility] 2020-04-03 2020-04-03 Outpatient [facility] [id number] [facility] 2020-01-19 2020-01-19 Outpatient [facility] [id number] [facility] 2020-01-16 2020-01-16 [facility] [id number] [facility] 16:40:00 16:40:00 [facility] Medicine Outpati ent Clinics 2019-12-20 2019-12-20 Outpatient [id number] 09:47:00 09:47:00 [facility] Outpati ent Clinics 2019-12-03 2019-12-03 [facility] [id number] [address] 09:40:00 09:40:00 t [facility] Medicine Outpati ent Clinics 2019-10-07 2019-10-07 [facility] [id number] [address] 08:40:00 08:40:00 t [facility] Medicine Outpati ent Clinics 2019-07-25 2019-07-25 [facility] [id number] [facility] 15:47:00 15:47:00 t [facility] Medicine Outpati ent Clinics 2019-06-10 2019-06-10 [facility] [id number] [facility] 09:30:00 09:30:00 [facility] Medicine Outpati ent Clinics 2019-05-27 2019-05-27 [facility] [id number] [address] 20:24:00 20:24:00 t [facility] Medicine Outpati ent Clinics 2019-05-20 2019-05-20 [facility] [id number] [facility] [address] 09:00:00 09:00:00 t [facility] Medicine Outpati ent Clinics 2019-05-02 2019-05-02 [facility] [id number] [address] 15:00:00 15:00:00 t [facility] Medicine Outpati ent Clinics 2019-04-23 2019-04-23 [facility] [id number] 12:02:00 12:02:00 t [facility] Medicine Outpati ent Clinics 2019-04-23 2019-04-23 [facility] [id number] [address] 11:40:00 11:40:00 t [facility] Medicine Outpati ent Clinics 2019-04-17 2019-04-17 [facility] [id number] 21:31:00 21:31:00 t [facility] Medicine Outpati ent Clinics 2019-04-17 2019-04-17 [facility] [id number] 10:30:00 10:30:00 t [facility] Medicine Outpati ent Clinics 2019-03-08 2019-03-08 [facility] [id number] 08:00:00 08:00:00 t [facility] Medicine Outpati ent Clinics 2019-02-08 2019-02-08 [facility] [id number] [facility] 13:00:00 13:00:00 t [facility] Medicine Outpati ent Clinics 2018-12-28 2018-12-28 [facility] [id number] [facility] 16:31:00 16:31:00 t [facility] Medicine Outpati ent Clinics 2018-12-28 2018-12-28 [facility] [id number] [address] 08:20:00 08:20:00 t [facility] Medicine Outpati ent Clinics 2018-12-17 2018-12-17 [facility] [id number] 22:23:00 22:23:00 t [facility] Medicine Outpati ent Clinics 2018-12-06 2018-12-06 [facility] [id number] [facility] 08:20:00 08:20:00 t [facility] Medicine Outpati ent Clinics 2018-09-05 2018-09-05 [facility] [id number] 16:00:00 16:00:00 t [facility] Medicine Outpati ent Clinics 2018-08-17 2018-08-17 [facility] [id number] [facility] 15:20:00 15:20:00 t [facility] Medicine Outpati ent Clinics 2018-06-26 2018-06-26 [facility] [id number] 10:28:00 10:28:00 t [facility] Medicine Outpati ent Clinics 2018-06-21 2018-06-21 [facility] [id number] 11:30:00 11:30:00 [facility] Medicine Outpati ent Clinics 2018-06-20 2018-06-20 [facility] [id number] [address] 16:43:00 16:43:00 t [facility] Medicine Outpati ent Clinics 2018-06-14 2018-06-14 [facility] [id number] 14:21:00 14:21:00 t [facility] Medicine Outpati ent Clinics 2018-06-08 2018-06-08 [facility] [id number] [facility] 10:30:00 10:30:00 t [facility] Medicine Outpati ent Clinics 2018-01-24 2018-01-24 [facility] [id number] [facility] 10:04:00 10:04:00 t [facility] Medicine Outpati ent Clinics 2017-12-22 2017-12-22 [facility] [id number] [facility] 00:16:00 00:16:00 t [facility] Medicine Outpati ent Clinics 2017-12-21 2017-12-21 [facility] [id number] 15:00:00 15:00:00 [facility] Medicine Outpati ent Clinics Results This patient has no known results.
[2021-08-04] MEDS ORDERED: IPRATROPIUM BROM 0.5MG/2.5ML ONE (06:10)
[2021-08-04] MEDS ORDERED: LEVALBUTEROL 1.25 MG/3 ML NEB ONE ×2 (06:10→08:05)
[2021-08-04] MEDS ORDERED: METHYLPREDNISOLONE 125 MG INJ ONE (06:11)
[2021-08-04] MEDS ORDERED: NA CHLORIDE 0.9% 1,000 ML ONE (06:12)
[2021-08-04] MEDS ORDERED: Levofloxacin500mg IV 500 MG/100 ML BAG IV ONE (06:12)
[2021-08-04 06:22] LABS: Absolute Lymphocytes (CBC) 1.2 K/uL (0.7-4.9); Hematocrit 40.8 % (36.0-45.0); Lymphocytes % 10.2 % (15.3-44.8); MPV 7.8 fL (7.6-11.3); RBC Red Blood Cell Count 4.64 M/uL (3.86-4.86)
[2021-08-04 06:23] LABS: Blood Gas Oxyhemoglobin 90.3 % (94-97); Blood O2 Saturation 93.1 % (92-98.5)
[2021-08-04 06:39] LABS: Protime INR 1.8
[2021-08-04 06:50] LABS: Albumin 3.7 g/dL (3.4-5.0); Bilirubin Direct 0.3 mg/dL (0-0.2); Bilirubin Total 0.8 mg/dL (0.2-1.0); Potassium 4.2 mmol/L (3.5-5.1); Protein, Total 8.3 g/dL (6.4-8.2); Troponin High Sensitivity 13.4 pg/mL (<58.9)
--- NOTE | 2021-08-04 07:05 | ER ---
Nurse's Notes [facility] Name: Nayely Patiño Age: 65 yrs Sex: Female : 1955 Arrival Date: 08/04/2021 Time: 05:48 Bed 20 Private MD: Diagnosis: Persistent atrial fibrillation;Chronic atrial fibrillation;Dyspnea;COPD/ Chronic obstructive pulmonary disease with (acute) exacerbation Presentation: 08/04 05:58 Chief complaint: Patient states: Worsening shortness of breath x 2 days; Hx of COPD, lp1 last used Albuterol Neb at home at 0400 without relief. Coronavirus screen: difficulty breathing. Ebola Screen: No symptoms or risks identified at this time. Initial Sepsis Screen: Does the patient meet any 2 criteria? RR > 20 per min. HR > 90 bpm. Yes Does the patient have a suspected source of infection? Yes: Productive cough/pneumonia. Risk Assessment: Do you want to hurt yourself or someone else? Patient reports no desire to harm self or others. Onset of symptoms was August 04, 2021. 05:58 Method Of Arrival: Wheelchair lp1 05:58 Acuity: ALEXI 2 lp1 Triage Assessment: 06:01 General: Appears distressed, Behavior is appropriate for age. Respiratory: Reports lp1 shortness of breath Respiratory effort is labored, Respiratory pattern is tachypnea Onset: The symptoms/episode began/occurred gradually, the patient has moderate shortness of breath. Historical: - Allergies: 06:01 Bactrim; lp1 06:01 IV Iodine; lp1 - PMHx: 06:01 Atrial Fib; COPD; lp1 - PSHx: 06:01 Spinal Fusion; lp1 - Immunization history:: Adult Immunizations up to date. - Social history:: Smoking status: Patient denies any tobacco usage or history of. - Family history:: not pertinent. Screenin:01 Abuse screen: Denies threats or abuse. Denies injuries from another. Nutritional lp1 screening: No deficits noted. Tuberculosis screening: No symptoms or risk factors identified. 06:34 Fall Risk IV access (20 points). kd3 Assessment: 06:31 General: Appears distressed, uncomfortable, Behavior is calm, cooperative, appropriate kd3 for age. Pain: Complains of pain in chest. Neuro: Level of Consciousness is awake, alert, Oriented to person, place, time, situation. Cardiovascular: Rhythm is atrial fibrillation with rapid ventricular response. Respiratory: Airway is patent Breath sounds are clear bilaterally. Breath sounds with wheezes bilaterally. GI: No signs and/or symptoms were reported involving the gastrointestinal system. : No signs and/or symptoms were reported regarding the genitourinary system. 08:40 Reassessment: Patient and/or family updated on plan of care and expected duration. Pain ap3 level reassessed. Patient is alert, oriented x 3, equal unlabored respirations, skin warm/dry/pink. patient alert, oriented Xs 3. Patient has visitor at the bedside this morning. Patient was assisted to bedside commode, and assisted back into bed upon completion. Patient had increased RR rate during ambulation, but resolved when placed back into bed with head of bed elevated. Patients bed is locked, in lowest position. Side rails up X's 1 with visitor at bedside. Patient has call light within reach. 15:03 Reassessment: nurse returned from lunch with patient sitting up in bed, bipap off, and ap3 patient is eating what a visitor brought her. patient's respirations are even and unlabored at this time, patient a/o X4 and is not displaying any signs of distress. patient is 92% on room air. Nurse placed patient on 2L oxygen via NC. Vital Signs: 05:58 BP 151 / 108; Pulse 148; Resp 32; Temp 97.4(A); Pulse Ox 96% on R/A; Weight 99.79 kg lp1 (R); Height 5 ft. 2 in. (157.48 cm); Pain 0/10; 06:33 BP 143 / 79; Pulse 137; Resp 15; Pulse Ox 99% on BiPAP; kd3 08:47 Pulse 115; Resp 17; Pulse Ox 100% on BiPAP; ap3 09:32 BP 127 / 85; Pulse 122; Pulse Ox 98% on BiPAP; ap3 11:36 BP 120 / 86; Pulse 75; Pulse Ox 96% on BiPAP; ap3 15:00 Pulse 82; Pulse Ox 92% on R/A; ap3 15:04 Pulse 80; Pulse Ox 96% on 2 lpm NC; ap3 05:58 Body Mass Index 40.24 (99.79 kg, 157.48 cm) lp1 ED Course: 05:48 Patient arrived in ED. ja2 05:55 Vaibhav Mendoza MD is Attending Physician. jaime 06:01 Triage completed. lp1 06:01 Peyton Zamora, SYLVIA is Primary Nurse. kd3 06:01 Arm band placed on. lp1 06:01 Patient has correct armband on for positive identification. Placed in gown. Bed in low lp1 position. monitor technician on. Pulse ox on. NIBP on. 06:19 XRAY Chest (1 view) In Process Unspecified. EDMS 07:01 Gilmer Curiel is Hospitalizing Provider. jaime 07:02 Arden Lagunas MD is Hospitalizing Provider. jaime 17:23 No provider procedures requiring assistance completed. Patient admitted, IV remains in ap3 place. Administered Medications: 07:01 Discontinued: levofloxacin 500 mg 100 ml IVPB once over 60 mins jaime 06:52 Discontinued: NS 0.9% 1000 ml IV at 1 bolus Per protocol; 1000 mL bolus jaime 06:13 Drug: SOLU-Medrol (methylPrednisoLONE) 125 mg Route: IVP; Site: right antecubital; kd3 08:47 Follow up: Response: No adverse reaction ap3 06:13 Drug: Xopenex (levalbuterol) 3.75 mg Route: Inhalation; kd3 06:14 Drug: AtroVENT (ipratropium) Aerosol 0.5 mg Route: Inhalation; kd3 06:14 Drug: levofloxacin 500 mg Volume: 100 ml; Route: IVPB; Infused Over: 60 mins; Site: kd3 right antecubital; 06:14 Drug: NS 0.9% 1000 ml Route: IV; Rate: 1 bolus; Site: right antecubital; kd3 08:08 Drug: Lasix (furosemide) 40 mg Route: IVP; Site: right forearm; ap3 09:26 Follow up: Response: No adverse reaction ap3 08:08 Drug: Lopressor (metoprolol) 5 mg Route: IVP; Site: right forearm; ap3 09:26 Follow up: Response: No adverse reaction ap3 08:11 Drug: Digoxin 0.5 mg Route: IVP; Site: right forearm; ap3 09:26 Follow up: Response: No adverse reaction ap3 08:14 Drug: Rocephin (cefTRIAXone) 1 grams Route: IV; Rate: per protocol; Site: right forearm;ap3 08:48 Follow up: Rate change per protocol; IV Status: Completed infusion ap3 08:16 Drug: Lopressor (metoprolol) 5 mg Route: IVP; Site: right forearm; ap3 09:26 Follow up: Response: No adverse reaction ap3 08:24 Drug: Lopressor (metoprolol) 5 mg Route: IVP; Site: right forearm; ap3 09:26 Follow up: Response: No adverse reaction ap3 08:36 Drug: Xopenex (levalbuterol) 2.5 mg Route: Inhalation; ap3 09:25 Drug: Lopressor (metoprolol TARTRATE) 50 mg Route: PO; ap3 09:26 Follow up: Response: No adverse reaction ap3 09:25 Drug: Eliquis (apixaban) 5 mg Route: PO; ap3 11:37 Follow up: Response: No adverse reaction ap3 09:25 Drug: Flecainide 100 mg Route: PO; ap3 11:36 Follow up: Response: No adverse reaction ap3 Outcome: 07:04 Decision to Hospitalize by Provider. jaime 17:23 Admitted to Tele accompanied by tech, family with patient, via stretcher, with oxygen, ap3 with chart. 17:23 Condition: good 17:23 Discharge instructions given to patient, family, Instructed on the need for admit, Demonstrated understanding of instructions. 17:23 Patient left the ED. ap3 Signatures: Dispatcher [employer] Vaibhav Cope MD MD cha Pena, Laura, RN RN lp1 Anyi Adler RN RN ap3 Concha Yeager Kyli, RN RN kd3
--- NOTE | 2021-08-04 07:05 | EDPHYS ---
Physician Documentation [facility] Name: Nayely Patiño Age: 65 yrs Sex: Female : 1955 Arrival Date: 08/04/2021 Time: 05:48 Bed 20 Private MD: ED Physician Vaibhav Mnedoza HPI: 08/04 06:55 This 65 yrs old Female presents to ER via Wheelchair with complaints of COPD jaime Exacerbation, Breathing Difficulty. 06:55 The patient has shortness of breath at rest, with light activity. Onset: The jaime symptoms/episode began/occurred just prior to arrival, this morning. Duration: The symptoms are continuous, and are steadily getting worse. The patient's shortness of breath is aggravated by coughing, supine position. Associated signs and symptoms: The patient has no apparent associated signs or symptoms. Severity of symptoms: At their worst the symptoms were mild moderate in the emergency department the symptoms are unchanged. The patient has not experienced similar symptoms in the past. Historical: - Allergies: 06:01 Bactrim; lp1 06:01 IV Iodine; lp1 - PMHx: 06:01 Atrial Fib; COPD; lp1 - PSHx: 06:01 Spinal Fusion; lp1 - Immunization history:: Adult Immunizations up to date. - Social history:: Smoking status: Patient denies any tobacco usage or history of. - Family history:: not pertinent. ROS: 06:55 Constitutional: Negative for fever, chills, and weight loss, Eyes: Negative for injury, jaime pain, redness, and discharge, ENT: Negative for injury, pain, and discharge, Neck: Negative for injury, pain, and swelling, Abdomen/GI: Negative for abdominal pain, nausea, vomiting, diarrhea, and constipation, Back: Negative for injury and pain, : Negative for injury, bleeding, discharge, and swelling, MS/Extremity: Negative for injury and deformity, Skin: Negative for injury, rash, and discoloration, Neuro: Negative for headache, weakness, numbness, tingling, and seizure. 06:55 Cardiovascular: Positive for chest pain, palpitations. 06:55 Respiratory: Positive for cough, shortness of breath, wheezing, inspiratory, expiratory. Exam: 06:55 Constitutional: This is a well developed, well nourished patient who is awake, alert, jaime and in no acute distress. Head/Face: Normocephalic, atraumatic. Eyes: Pupils equal round and reactive to light, extra-ocular motions intact. Lids and lashes normal. Conjunctiva and sclera are non-icteric and not injected. Cornea within normal limits. Periorbital areas with no swelling, redness, or edema. ENT: Nares patent. No nasal discharge, no septal abnormalities noted. Tympanic membranes are normal and external auditory canals are clear. Oropharynx with no redness, swelling, or masses, exudates, or evidence of obstruction, uvula midline. Mucous membranes moist. Neck: Trachea midline, no thyromegaly or masses palpated, and no cervical lymphadenopathy. Supple, full range of motion without nuchal rigidity, or vertebral point tenderness. No Meningismus. Chest/axilla: Normal chest wall appearance and motion. Nontender with no deformity. No lesions are appreciated. Abdomen/GI: Soft, non-tender, with normal bowel sounds. No distension or tympany. No guarding or rebound. No evidence of tenderness throughout. Back: No spinal tenderness. No costovertebral tenderness. Full range of motion. Female : Normal external genitalia. Skin: Warm, dry with normal turgor. Normal color with no rashes, no lesions, and no evidence of cellulitis. MS/ Extremity: Pulses equal, no cyanosis. Neurovascular intact. Full, normal range of motion. Neuro: Awake and alert, GCS 15, oriented to person, place, time, and situation. Cranial nerves II-XII grossly intact. Motor strength 5/5 in all extremities. Sensory grossly intact. Cerebellar exam normal. Normal gait. Psych: Awake, alert, with orientation to person, place and time. Behavior, mood, and affect are within normal limits. 06:55 Cardiovascular: Rate: tachycardic, Rhythm: irregularly irregular, Pulses: Pulses are 4+ in bilateral radial, brachial, femoral, popliteal, posterior tibial and and dorsalis pedis arteries.. Heart sounds: normal, Edema: is not appreciated, JVD: is not appreciated. 06:55 ECG was reviewed by the Attending Physician. Vital Signs: 05:58 BP 151 / 108; Pulse 148; Resp 32; Temp 97.4(A); Pulse Ox 96% on R/A; Weight 99.79 kg lp1 (R); Height 5 ft. 2 in. (157.48 cm); Pain 0/10; 06:33 BP 143 / 79; Pulse 137; Resp 15; Pulse Ox 99% on BiPAP; kd3 08:47 Pulse 115; Resp 17; Pulse Ox 100% on BiPAP; ap3 09:32 BP 127 / 85; Pulse 122; Pulse Ox 98% on BiPAP; ap3 11:36 BP 120 / 86; Pulse 75; Pulse Ox 96% on BiPAP; ap3 15:00 Pulse 82; Pulse Ox 92% on R/A; ap3 15:04 Pulse 80; Pulse Ox 96% on 2 lpm NC; ap3 05:58 Body Mass Index 40.24 (99.79 kg, 157.48 cm) lp1 MDM: 05:56 Patient medically screened. jaime 06:59 Differential diagnosis: asthma, Bronchitis CHF exacerbation, Myocardial Infarction jaime pulmonary edema, Unstable Angina. Antibiotic administration: Levaquin given. Data reviewed: vital signs, nurses notes, lab test result(s), EKG, radiologic studies, plain films. 08/04 05:57 Order name: Basic Metabolic Panel; Complete Time: 06:51 [facility] 08/04 05:57 Order name: CBC with Diff; Complete Time: 06:51 jaime 08/04 05:57 Order name: LFT's; Complete Time: 06:51 jaime 08/04 05:57 Order name: Magnesium; Complete Time: 06:51 [facility] 08/04 05:57 Order name: NT PRO-BNP; Complete Time: 06:51 jaime 08/04 05:57 Order name: PT-INR; Complete Time: 06:51 [facility] 08/04 05:57 Order name: Troponin HS; Complete Time: 06:51 [facility] 08/04 05:57 Order name: Blood Culture Adult (2) [facility] 08/04 05:57 Order name: SARS-COV-2 RT PCR (Document "Date of Onset" if Symptomatic) [facility] 08/04 05:59 Order name: Lactate; Complete Time: 06:51 jaime 08/04 05:59 Order name: Procalcitonin; Complete Time: 07:31 [facility] 08/04 05:59 Order name: ABG; Complete Time: 06:51 jaime 08/04 13:25 Order name: CBC with Automated Diff EDMS 08/04 13:25 Order name: CBC with Automated Diff EDMS 08/04 05:57 Order name: XRAY Chest (1 view); Complete Time: 07:55 jaime 08/04 05:59 Order name: BIPAP [facility] 08/04 13:25 Order name: Comprehensive Metabolic Panel EDDC 08/04 13:25 Order name: Comprehensive Metabolic Panel EDDC 08/04 05:57 Order name: EKG; Complete Time: 05:58 jaime 08/04 05:57 Order name: Cardiac monitoring; Complete Time: 06:19 jaime 08/04 05:57 Order name: EKG - Nurse/Tech; Complete Time: 06:31 jaime 08/04 05:57 Order name: IV Saline Lock; Complete Time: 06:19 jaime 08/04 05:57 Order name: Labs collected and sent; Complete Time: 06:19 jaime 08/04 05:57 Order name: O2 Per Protocol; Complete Time: 06:19 jaime 08/04 05:57 Order name: O2 Sat Monitoring; Complete Time: 06:19 jaime 08/04 13:25 Order name: CONS Physician Consult EDDC 08/04 13:25 Order name: Heart Healthy EDMS EC:55 Rate is 137 beats/min. Rhythm is irregularly irregular. QRS [place] is Normal. GA interval jaime is normal. QRS interval is normal. QT interval is normal. No Q waves. T waves are Normal. No ST changes noted. Clinical impression: Atrial Fibrillation and No evidence of ischemia. Interpreted by me. Reviewed by me. Administered Medications: 07:01 Discontinued: levofloxacin 500 mg 100 ml IVPB once over 60 mins jaime 06:52 Discontinued: NS 0.9% 1000 ml IV at 1 bolus Per protocol; 1000 mL bolus jaime 06:13 Drug: SOLU-Medrol (methylPrednisoLONE) 125 mg Route: IVP; Site: right antecubital; kd3 08:47 Follow up: Response: No adverse reaction ap3 06:13 Drug: Xopenex (levalbuterol) 3.75 mg Route: Inhalation; kd3 06:14 Drug: AtroVENT (ipratropium) Aerosol 0.5 mg Route: Inhalation; kd3 06:14 Drug: levofloxacin 500 mg Volume: 100 ml; Route: IVPB; Infused Over: 60 mins; Site: kd3 right antecubital; 06:14 Drug: NS 0.9% 1000 ml Route: IV; Rate: 1 bolus; Site: right antecubital; kd3 08:08 Drug: Lasix (furosemide) 40 mg Route: IVP; Site: right forearm; ap3 09:26 Follow up: Response: No adverse reaction ap3 08:08 Drug: Lopressor (metoprolol) 5 mg Route: IVP; Site: right forearm; ap3 09:26 Follow up: Response: No adverse reaction ap3 08:11 Drug: Digoxin 0.5 mg Route: IVP; Site: right forearm; ap3 09:26 Follow up: Response: No adverse reaction ap3 08:14 Drug: Rocephin (cefTRIAXone) 1 grams Route: IV; Rate: per protocol; Site: right forearm;ap3 08:48 Follow up: Rate change per protocol; IV Status: Completed infusion ap3 08:16 Drug: Lopressor (metoprolol) 5 mg Route: IVP; Site: right forearm; ap3 09:26 Follow up: Response: No adverse reaction ap3 08:24 Drug: Lopressor (metoprolol) 5 mg Route: IVP; Site: right forearm; ap3 09:26 Follow up: Response: No adverse reaction ap3 08:36 Drug: Xopenex (levalbuterol) 2.5 mg Route: Inhalation; ap3 09:25 Drug: Lopressor (metoprolol TARTRATE) 50 mg Route: PO; ap3 09:26 Follow up: Response: No adverse reaction ap3 09:25 Drug: Eliquis (apixaban) 5 mg Route: PO; ap3 11:37 Follow up: Response: No adverse reaction ap3 09:25 Drug: Flecainide 100 mg Route: PO; ap3 11:36 Follow up: Response: No adverse reaction ap3 Disposition Summary: 08/04/21 07:04 Hospitalization Ordered Hospitalization Status: Inpatient Admission jaime Provider: Arden Lagunas cha Location: Telemetry/MedSurg (Inpatient) jaime Condition: Fair jaime Problem: new jaime Symptoms: have improved jaime Bed/Room Type: Standard jaime Room Assignment: 431(08/04/21 16:32) bd Diagnosis - Persistent atrial fibrillation jaime - Chronic atrial fibrillation jaime - Dyspnea jaime - COPD/ Chronic obstructive pulmonary disease with (acute) exacerbation jaime Forms: - Medication Reconciliation Form jaime - SBAR form jaime Signatures: Dispatcher [employer] EDRafia Valadez Corey, MD MD cha Pena, Laura, RN RN lp1 Anyi Adler RN RN ap3 Peyton Zamora RN RN kd3 Corrections: (The following items were deleted from the chart) 16:32 07:04 jaime stein
--- NOTE | 2021-08-04 07:09 | EKG ---
Test Date: 2021-08-04 Test Time: 06:29:51 [employer]ile Pin Worker: RONALD MEASUREMENT RESULTS: Intervals: Rate: 137 ND: QRSD: 92 QT: 360 QTc: 543 [place]: P: ND: QRS: 105 T: 92 INTERPRETIVE STATEMENTS: Atrial fibrillation with rapid ventricular response Rightward axis Nonspecific ST and T wave abnormality, probably digitalis effect Abnormal ECG Compared to ECG 08/12/2018 17:44:08 Sinus bradycardia no longer present Sinus arrhythmia no longer present ST (T wave) deviation still present Electronically Signed On 08-04-21 07:09:19 CDT by Dimas Cuadra
--- NOTE | 2021-08-04 07:52 | RAD REPORT ---
EXAM DESCRIPTION: RAD - Chest Single View - 08/04/2021 6:17 am CLINICAL HISTORY: COPD;Cough COMPARISON: Chest Single View dated 08/12/2018; Chest Single View dated 06/10/2018 FINDINGS: Lines: None. Lungs: Hazy bilateral airspace disease with diffuse prominence of the pulmonary vasculature. Pleural: No significant pleural effusions or pneumothorax. Cardiac: Cardiomegaly. Bones: No acute fractures. Other: IMPRESSION: Interstitial edema and/or multifocal pneumonia.
[2021-08-04] MEDS ORDERED: CEFTRIAXONE 1000 MG/VIAL ONE (08:05)
[2021-08-04] MEDS ORDERED: METOPROLOL TAR 50 MG TAB ONE ×2 (08:05→08:54)
[2021-08-04] MEDS ORDERED: METOPROLOL TARTRATE 5 MG/5 ML INJ IV ONE (08:06)
[2021-08-04] MEDS ORDERED: DIGOXIN 0.25 MG/ML AMP ONE (08:06)
[2021-08-04] MEDS ORDERED: FUROSEMIDE 40 MG/4 ML VIAL ONE (08:06)
[2021-08-04] MEDS ORDERED: APIXABAN 5 MG TABLET ONE (08:54)
[2021-08-04] MEDS ORDERED: FLECAINIDE 100 MG TAB PO ONE (09:00)
[2021-08-04] MEDS ORDERED: MORPHINE 2 MG/ML SYR IV PRN (13:21)
[2021-08-04] MEDS ORDERED: ACETAMINOPHEN 500 MG TAB PO PRN (13:21)
[2021-08-04] MEDS ORDERED: ONDANSETRON 4 MG/2 ML VIAL IV PRN (13:21)
[2021-08-04] MEDS ORDERED: DIGOXIN 0.25 MG/ML AMP IV ONE (13:24)
[2021-08-04] MEDS ORDERED: NA CHLORIDE 0.9% 1,000 ML IV SCH (14:00)
[2021-08-04] MEDS: METOPROLOL TAR 50 MG TAB PO SCH (18:00)
--- NOTE | 2021-08-04 18:38 | P.HP ---
Certification for Inpatient Patient admitted to: Inpatient With expected LOS: >2 Midnights Patient will require the following post-hospital care: None Practitioner: I am a practitioner with admitting privileges, knowledge of patient current condition, hospital course, and medical plan of care. Services: Services provided to patient in accordance with Admission requirements found in Title 42 Section 412.3 of the Code of Federal Regulations Patient History Date of Service: 08/04/21 Reason for admission: Afib with RVR History of Present Illness: Pt is a 65yo who was female who presents to the hospital with atrial fibrillation. Pt has rapid ventricular response. Patient has a longstanding history of atrial fibrillation. She has been on medication for many years but she has not had hospitalization in the last 4 years. She came into the hospital short of breath with palpitations and her heart rate was in the 150s to 170s. She was seen in the emergency room and she was started on amiodarone. She will be admitted to the hospital for further treatment. Patient's rate is significantly elevated so we will try to get the rate controlled. Continue with anticoagulation. Allergies Iodinated Contrast Media Allergy (Verified 06/10/18 14:38) Hives sulfamethoxazole [From Bactrim] Allergy (Verified 06/10/18 14:38) Hives trimethoprim [From Bactrim] Allergy (Verified 06/10/18 14:38) Hives Home Medications: Albuterol Inhaler [Ventolin Inhaler*] 2 puff IH Q6H PRN 06/10/18 Apixaban [Eliquis] 5 mg PO BID 06/10/18 Atorvastatin Calcium [Lipitor] 40 mg PO BEDTIME 06/10/18 Flecainide [Tambocor*] 100 mg PO BID 06/10/18 Metoprolol Tartrate [Lopressor*] 50 mg PO BID 06/10/18 Sertraline HCl 50 mg PO DAILY 06/10/18 Fluticasone/Umeclidin/Vilanter [Trelegy Ellipta 100-62.5-25] 1 puff IH DAILY 08/12/18 Tramadol HCl [Ultram] 50 mg PO Q6HP PRN #12 tablet 08/13/18 Cbd Oil 1 gtt PO BID 08/04/21 - Past Medical/Surgical History Diabetic: No -: CVA no residual 10/2016 -: A-fibb & flutter. -: COPD -: sleep apnea wears C-pap. -: dental issues -: Back surg- laminectomy, spinal fusions -: closure of hand cut on rt. -: Left knee scope -: cardiac ablasion - Family History Mother Medical History: Heart disease, Hypertension Father Medical History: Heart disease, Lung disease, Diabetes - Social History Alcohol use: Yes CD- Drugs: No Caffeine use: Yes Review of Systems 10-point ROS is otherwise unremarkable Physical Examination - Vital Signs Temperature: 98 F Blood Pressure: 140/70 Pulse: 88 Respirations: 18 Pulse Ox (%): 96 - Physical Exam General: Alert, In no apparent distress, Oriented x3 HEENT: Atraumatic, PERRLA, Mucous membr. moist/pink, EOMI, Sclerae nonicteric Neck: Supple, 2+ carotid pulse no bruit, No LAD, Without JVD or thyroid abnormality Respiratory: Clear to auscultation bilaterally, Normal air movement Cardiovascular: Irregular heart rate/rhythm, Systolic murmur Gastrointestinal: Normal bowel sounds, Soft and benign, Non-distended, No tenderness Musculoskeletal: No clubbing, No swelling, No tenderness Neurological: Abnormal strength, Abnormal tone, Abnormal cranial nerve function, Abnormal affect Lymphatics: No axilla or inguinal lymphadenopathy - Studies Laboratory Data (last 24 hrs) 08/04/21 06:05: WBC 12.2 H, Hgb 13.3, Hct 40.8, Plt Count 257 08/04/21 06:05: Sodium 138, Potassium 4.2, BUN 26 H, Creatinine 1.26, Glucose 125 H, Magnesium 2.0, Total Bilirubin 0.8, AST 23, ALT 33, Alkaline Phosphatase 119 H 08/04/21 05:57: PT 20.0 H, INR 1.80 Assessment & Plan - Problems (Diagnosis) (1) Atrial fibrillation with rapid ventricular response Current Visit: Yes Status: Acute (2) CAD (coronary artery disease) Current Visit: No Status: Acute (3) CVA (cerebral vascular accident) Current Visit: No Status: Acute (4) Sleep apnea Current Visit: No Status: Acute Qualifiers: Sleep apnea type: unspecified type Qualified Code(s): G47.30 - Sleep apnea, unspecified - Plan Plan: 1. Continue with medication for rate control 2. Anticoagulation 3. Echocardiogram 4. Cardiology consultation 5. Monitor thyroid studies 6. IV hydration 7. GI DVT prophylaxis Discharge Plan: Home Plan to discharge in: 24 Hours - Advance Directives Does patient have a Living Will: No Does patient have a Durable POA for Healthcare: No - Code Status/Comfort Care Code Status Assessed: Yes Code Status: Full Code Critical Care: No Time Spent Managing PTS Care (In Minutes): 45
[2021-08-04 18:41] VITALS: BMI 40.2
[2021-08-04] MEDS: FLECAINIDE 100 MG TAB PO SCH (21:39)
[2021-08-04] MEDS: APIXABAN 5 MG TABLET PO SCH (21:39)
[2021-08-04] MEDS ORDERED: ALBUTEROL 2.5 MG/3 ML NEB SOL NEB PRN (22:06)
--- NOTE | 2021-08-05 02:51 | P.PN ---
Subjective Date of Service: 08/05/21 Subjective: No new changes Review of Systems 10-point ROS is otherwise unremarkable Physical Examination - Vital Signs Temperature: 98 F Blood Pressure: 140/70 Pulse: 88 Respirations: 18 Pulse Ox (%): 96 - Physical Exam General: Alert, In no apparent distress HEENT: Atraumatic, PERRLA, EOMI Neck: Supple, JVD not distended Respiratory: Clear to auscultation bilaterally, Normal air movement Cardiovascular: Regular rate/rhythm, Normal S1 S2 Gastrointestinal: Normal bowel sounds, No tenderness Musculoskeletal: No tenderness Integumentary: No rashes Neurological: Normal speech, Normal tone, Normal affect Lymphatics: No axilla or inguinal lymphadenopathy - Studies Laboratory Data (last 24 hrs) 08/04/21 06:05: WBC 12.2 H, Hgb 13.3, Hct 40.8, Plt Count 257 08/04/21 06:05: Sodium 138, Potassium 4.2, BUN 26 H, Creatinine 1.26, Glucose 125 H, Magnesium 2.0, Total Bilirubin 0.8, AST 23, ALT 33, Alkaline Phosphatase 119 H 08/04/21 05:57: PT 20.0 H, INR 1.80 Medications List Reviewed: Yes Assessment & Plan - Problems (Diagnosis) (1) Atrial fibrillation with rapid ventricular response Current Visit: Yes Status: Acute (2) CAD (coronary artery disease) Current Visit: No Status: Acute (3) CVA (cerebral vascular accident) Current Visit: No Status: Acute (4) Sleep apnea Current Visit: No Status: Acute Qualifiers: Sleep apnea type: unspecified type Qualified Code(s): G47.30 - Sleep apnea, unspecified - Plan Plan: 1. Continue with medication for rate control 2. Anticoagulation 3. Echocardiogram 4. Cardiology consultation 5. Monitor thyroid studies 6. IV hydration 7. GI DVT prophylaxis - Advance Directives Does patient have a Living Will: No Does patient have a Durable POA for Healthcare: No - Code Status/Comfort Care Code Status: Full Code
[2021-08-05 03:51] LABS: Absolute Lymphocytes (CBC) 0.8 K/uL (0.7-4.9); Hematocrit 37.5 % (36.0-45.0); Lymphocytes % 6.5 % (15.3-44.8); MPV 7.8 fL (7.6-11.3); RBC Red Blood Cell Count 4.35 M/uL (3.86-4.86)
[2021-08-05 04:58] LABS: Albumin 3.2 g/dL (3.4-5.0); Bilirubin Total 0.6 mg/dL (0.2-1.0); Potassium 4.2 mmol/L (3.5-5.1); Protein, Total 7.4 g/dL (6.4-8.2); Thyroid Stimulating Hormone 0.243 uIU/mL (0.360-3.740)
[2021-08-05 05:25] LABS: Blood Morphology Comment NOT SEEN (NOT SEEN); Platelet Estimate ADEQ
[2021-08-05] MEDS: METOPROLOL TAR 50 MG TAB PO SCH (06:06)
[2021-08-05 09:08] VITALS: O2SAT 96
[2021-08-05] MEDS: FLECAINIDE 100 MG TAB PO SCH (09:38)
[2021-08-05] MEDS: APIXABAN 5 MG TABLET PO SCH (09:38)
[2021-08-05 13:49] VITALS: BP 122/74; TEMP 97.7
--- NOTE | 2021-08-05 14:05 | CON ---
Date of Consultation: 08/04/2021 Reason For Consultation: Atrial fibrillation. History Of Present Illness: Ms. Patiño is a 65-year-old woman. She is known to us from the office visit and admission. Has had negative cardiac workup in the past. Came in with rapid atrial fibrill ation with COPD exacerbation. Denied chest pain, nausea, vomiting, diaphoresis, PND, orthopnea, peda l edema, or syncope. She did have palpitation. Denied any fever or chills or cough. BNP was 3335, otherwise everything else on her workup was negative. She remained in atrial fibrillation when she f irst came in, but by the time I saw her, she was in sinus rhythm. Echocardiogram is pending. Past Medical History: As stated above. Allergies: SHE IS ALLERGIC TO IODINE AND BACTRIM. Review of Systems: Negative. Social History: Negative. Family History: Negative. Medications: At home include Eliquis, inhalers, Lipitor, flecainide, and metoprolol. Physical Examination: General: She was pleasant, no acute distress. Sinus rhythm. Vital Signs: Stable, afebrile. HEENT: Negative. Neck: Supple with no bruit. Chest: Clear. Cardiac: Revealed normal rhythm. No murmurs, gallops, or rubs. Abdomen: Benign. Extremities: Revealed no clubbing, cyanosis, or edema. Diagnostic Data: EKG initially shows AFib. Chest x-ray was negative. BNP was 3335. Troponin is ne gative. Impression And Plan: Recurrent atrial fibrillation, on metoprolol and flecainide. Echocardiogram is pending. She can go home. I would increase her flecainide to 150 mg b.i.d., increase the metoprolo l dose on as needed basis. She can go home whenever it is okay with Dr. Lagunas and I will see her in t he office in the next week or 2. WILFREDO/LUIS MIGUEL Voice ID: [id number] Report ID: [id number]
--- NOTE | 2021-08-05 14:10 | ECHO ---
HEIGHT: 5 ft 2 in WEIGHT: 219 lb 15.989 oz DATE OF STUDY: 08/05/[address]: Arden Lagunas MD 2-DIMENSIONAL: YES M.MODE: YES DOPPLER: YES COLOR FLOW: YES TDS: PORTABLE: DEFINITY: BUBBLE STUDY: DIAGNOSIS: CONGESTIVE HEART FAILURE CARDIAC HISTORY: CATHERIZATION: NO SURGERY: NO PROSTHETIC VALVE: NO PACEMAKER: NO MEASUREMENTS (cm) DIASTOLIC (NORMALS) SYSTOLIC (NORMALS) IVSd 1.1 (0.6-1.2) LA Diam 3.1 (1.9-4.0) LVEF 55-60% LVIDd 3.6 (3.5-5.7) LVIDs 2.8 (2.0-3.5) %FS 23% LVPWd 1.2 (0.6-1.2) Ao Diam 2.4 (2.0-3.7) 2 DIMENSIONAL ASSESSMENT: RIGHT ATRIUM: NORMAL LEFT ATRIUM: NORMAL RIGHT VENTRICLE: NORMAL LEFT VENTRICLE: NORMAL TRICUSPID VALVE: NORMAL MITRAL VALVE: NORMAL PULMONIC VALVE: NORMAL AORTIC VALVE: NORMAL PERICARDIAL EFFUSION: TRACE AORTIC ROOT: NORMAL LEFT VENTRICULAR WALL MOTION: NORMAL DOPPLER/COLOR FLOW: MILD TRICUSPID REGURGITATION. MILD MITRAL REGURGITATION. COMMENTS: NORMAL LEFT VENTRICULAR EJECTION FRACTION 55-60%. MILD TRICUSPID REGURGITATION. MILD MITRAL REGURGITATION. NORMAL WALL MOTION. TECHNOLOGIST: BRADEN MATHIS
--- NOTE | 2021-08-07 22:54 | PN ---
Date of Progress Note: 08/05/2021 Subjective: Ms. Patiño has a history of atrial fibrillation and COPD. She is allergic to iodine an d Bactrim. She was taking Eliquis, inhalers, and Lipitor at home as well as flecainide and metoprolo l. Came in with recurrent atrial fibrillation. I decided to increase her flecainide to 150 mg 1 p.o . b.i.d. and increase her metoprolol on an as-needed basis. Echocardiogram, which was done on 2021 revealed an ejection fraction of 55% to 60% with some mild tricuspid and mitral regurgitation, n ormal wall motion, no effusion, no mitral valve prolapse. She is in sinus rhythm today. She can go home on the above mentioned instruction. I will see her in the office in the next week or 2. WILFREDO/LUIS MIGUEL Voice ID: [id number] Report ID: [id number]
--- NOTE | 2021-09-06 00:03 | P.DS ---
Discharge Date: 08/05/21 Disposition: ROUTINE DISCHARGE Discharge Condition: GOOD Reason for Admission: Afib with RVR - Problems (1) Atrial fibrillation with rapid ventricular response Status: Acute (2) CAD (coronary artery disease) Status: Acute (3) CVA (cerebral vascular accident) Status: Acute (4) Sleep apnea Status: Acute Qualifiers: Sleep apnea type: unspecified type Qualified Code(s): G47.30 - Sleep apnea, unspecified Brief History of Present Illness: Pt is a 65yo who was female who presents to the hospital with atrial fibrillation. Pt has rapid ventricular response. Patient has a longstanding history of atrial fibrillation. She has been on medication for many years but she has not had hospitalization in the last 4 years. She came into the hospital short of breath with palpitations and her heart rate was in the 150s to 170s. She was seen in the emergency room and she was started on amiodarone. She will be admitted to the hospital for further treatment. Patient's rate is significantly elevated so we will try to get the rate controlled. Continue with anticoagulation. Hospital Course: Patient was seen by cardiology and patient will be on flecainide and Lopressor. Patient is clinically doing much better. At this time, patient is stable for discharge home. Vital Signs/Physical Exam: Temp Pulse Resp BP Pulse Ox 97.7 F 85 18 122/74 94 08/05/21 12:00 08/05/21 12:00 08/05/21 12:00 08/05/21 12:00 08/05/21 12:00 General: Alert, In no apparent distress, Oriented x3 Cardiovascular: Regular rate/rhythm, Normal S1 S2, No murmurs Laboratory Data at Discharge: WBC 12.1 K/uL (4.3-10.9) H 08/05/21 03:28 Hgb 12.3 g/dL (12.0-15.0) 08/05/21 03:28 Hct 37.5 % (36.0-45.0) 08/05/21 03:28 Plt Count 230 K/uL (152-406) 08/05/21 03:28 PT 20.0 SECONDS (9.5-12.5) H 08/04/21 05:57 INR 1.80 08/04/21 05:57 Sodium 139 mmol/L (136-145) 08/05/21 03:28 Potassium 4.2 mmol/L (3.5-5.1) 08/05/21 03:28 BUN 29 mg/dL (7-18) H 08/05/21 03:28 Creatinine 1.28 mg/dL (0.55-1.3) 08/05/21 03:28 Glucose 138 mg/dL (74-106) H 08/05/21 03:28 Magnesium 2.0 mg/dL (1.8-2.4) 08/04/21 06:05 Total Bilirubin 0.6 mg/dL (0.2-1.0) 08/05/21 03:28 AST 20 U/L (15-37) 08/05/21 03:28 ALT 30 U/L (12-78) 08/05/21 03:28 Alkaline Phosphatase 103 U/L (45-117) 08/05/21 03:28 Home Medications: Albuterol Inhaler [Ventolin Inhaler*] 2 puff IH Q6H PRN 06/10/18 Apixaban [Eliquis] 5 mg PO BID 06/10/18 Atorvastatin Calcium [Lipitor] 40 mg PO BEDTIME 06/10/18 Metoprolol Tartrate [Lopressor*] 50 mg PO BID 06/10/18 Sertraline HCl 50 mg PO DAILY 06/10/18 Fluticasone/Umeclidin/Vilanter [Trelegy Ellipta 100-62.5-25] 1 puff IH DAILY 08/12/18 Tramadol HCl [Ultram] 50 mg PO Q6HP PRN #12 tablet 08/13/18 Cbd Oil 1 gtt PO BID 08/04/21 Flecainide Acetate 50 mg PO BID #60 tablet 08/05/21 Flecainide Acetate 100 mg PO BID #60 tablet 08/05/21 Furosemide 20 mg PO DAILY #30 tablet 08/05/21 Ketoconazole [Nizoral] 30 gm TP BID #1 cream..g. 08/05/21 Metoprolol Tartrate [Lopressor*] 50 mg PO BID 6AM 6PM #60 tab 08/05/21 Minocycline HCl 100 mg PO BID #14 capsule 08/05/21 Potassium Chloride [K-Dur] 10 meq PO DAILY #30 tab.er.prt 08/05/21 New Medications: Flecainide Acetate 100 mg PO BID #60 tablet Flecainide Acetate 50 mg PO BID #60 tablet Furosemide 20 mg PO DAILY #30 tablet Potassium Chloride [K-Dur] 10 meq PO DAILY #30 tab.er.prt Metoprolol Tartrate [Lopressor*] 50 mg PO BID 6AM 6PM #60 tab Minocycline HCl 100 mg PO BID #14 capsule Ketoconazole [Nizoral] 30 gm TP BID #1 cream..g. Physician Discharge Instructions: -DC IV and DC home -Follow-up with PCP in 1 to 2 weeks -Follow-up with Cardiology in 1 to 2 weeks -Please call Dr. Lagunas at [phone] if any questions regarding hospital stay -Please call nursing station at [phone] if any nursing or medication questions -Return to the emergency room if symptoms worsen Diet: AHA Activity: Fall precautions Followup: Dimas Cuadra MD [ACTIVE - CAN ADMIT] - Time spent managing pt's care (in minutes): 35
== END 2021-08-05 15:25 | disposition home or self-care (01) | DRG 308 ==
LOC: ER 05:45 → ERHOLD 13:22 → 4TH 17:06
PROVIDERS: ADMIT Hospitalist; ATTEND Hospitalist
PROC: 5A09357 Assistance with Respiratory Ventilation, Less than 24 Consecutive Hours, Continuous Positive Airway Pressure (ICD-10-PCS; principal; 2021-08-04)
DX: I48.20 Chronic atrial fibrillation, unspecified (principal); J18.9 Pneumonia, unspecified organism; J96.01 Acute respiratory failure with hypoxia; I50.31 Acute diastolic (congestive) heart failure; J44.1 Chronic obstructive pulmonary disease with (acute) exacerbation; J44.0 Chronic obstructive pulmonary disease with (acute) lower respiratory infection; G47.30 Sleep apnea, unspecified; I08.1 Rheumatic disorders of both mitral and tricuspid valves; I25.10 Atherosclerotic heart disease of native coronary artery without angina pectoris; I11.0 Hypertensive heart disease with heart failure; Z86.73 Personal history of transient ischemic attack (TIA), and cerebral infarction without residual deficits; Z88.2 Allergy status to sulfonamides; Z91.041 Radiographic dye allergy status; Z20.822 Contact with and (suspected) exposure to COVID-19
CPT/HCPCS: 36415; 71045; 80048; 80053; 80076; 82805; 82947; 83605; 83735; 83880; 84145; 84439; 84443; 84484; 85025; 85610; 87040; 93005; 93306; 94660; 99285; J1160; J1940; J2930; J7030; U0003